=== PATIENT | female | born 1945 | race Caucasian/White ===

== ENCOUNTER 2020-03-08 23:56 | Inpatient (IN) | payer MEDICARE, OTHER, SELFPAY ==
[2020-03-08 23:58] VITALS: BP 204/97; PULSE 102; RESP 18; TEMP 36.6; O2SAT 98; BMI 25.1
[2020-03-09] VITALS (81 sets, daily range): BP systolic 94–207; BP diastolic 39–124; PULSE 52–93; RESP 14–33; TEMP 36.7–37.6; O2SAT 92–98
--- NOTE | 2020-03-09 00:17 | XRR_ITS ---
PROCEDURE INFORMATION: Exam: XR Chest, 1 View Exam date and time: 03/09/2020 2:40 AM Age: 74 years old Clinical indication: Chest pain. TECHNIQUE: Imaging protocol: XR of the chest Views: 1 view. COMPARISON: No relevant prior studies available. FINDINGS: Lungs: No lung consolidation or pulmonary edema. Pleural space: No pleural effusion or pneumothorax. Heart/Mediastinum: The cardiac silhouette is not enlarged. The mediastinal contours are normal. There are 3 radiopaque capsules or pills in the lower thoracic esophagus. Bones/joints: No acute osseous abnormality. XR/XR chest 1V portable [id number] IMPRESSION: No acute abnormality.
--- NOTE | 2020-03-09 00:17 | ECG_ITS ---
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 Measurements Intervals Commodore Rate: 62 P: 72 LA: 159 QRS: -3 QRSD: 102 T: -40 QT: 419 QTc: 426 Interpretive Statements SINUS RHYTHM WITH OCCASIONAL SUPRAVENTRICULAR PREMATURE COMPLEXES NONSPECIFIC T-WAVE ABNORMALITY Compared to ECG 03/09/2020 02:09:00 Sinus bradycardia no longer present Possible ischemia no longer present T-wave abnormality still present Electronically Signed On 03-09-2020 21:26:29 CDT by Ulices Staples M.D. [email or web address]-Human Patientsjefferson comprehensive health centerStyleCraze Beauty Care Pvt Ltdashtabula county medical center.[id number]
--- NOTE | 2020-03-09 00:26 | W.ED.CHESTPA ---
Documented by User: BETO Shore 03/12/20 07:02 HPI - Chest Pain General: Chief Complaint: Chest Pain Stated Complaint: cp Time Seen by Provider: 03/09/20 00:18 History of Present Illness: HPI narrative: Patient been vomiting 6 or 7 times a day developed chest pain later this evening. Now she said center of her chest and radiates down the arms. She has epigastric tenderness also feels nauseated said she has had chest pain since February on and . Was told she had GERD MD complaint: chest pain Onset (ago): hour(s) Timing of current episode: constant Prior episodes: Yes Onset: during rest Pain location: epigastric Pain radiation: right arm and left arm Severity: similar to previous episodes Quality: sharp Relieving factors: nothing Exacerbating factors: nothing Associated symptoms: Reports no associated symptoms, nausea and vomiting; Deny dyspnea or fever(s) Review of Systems Const: Denies: fever(s), chills or body aches Eyes: Denies: change in vision or blurry vision ENMT: Denies: throat pain or nasal congestion Card: Reports: chest pain; Denies: dyspnea on exertion Resp: Denies: dyspnea, productive cough or non-productive cough GI: Reports: nausea and vomiting Musc: Denies: extremity pain Skin/Breast: Denies: rash Neuro: Denies: headache(s) Psych: Denies: anxiety or depression Luis/Lymph: Denies: easy bruising PFS ED PFSH: Medical History GERD (gastroesophageal reflux disease) Hypertension Recurrent UTI Surgical History H/O: hysterectomy Family History Father CAD (coronary artery disease) Emphysema lung Mother CAD (coronary artery disease) Social History Smoking and tobacco status: never smoked History of recent travel: No Physical Exam Const: COMMON NORMALS: no acute distress, average body habitus and patient oriented x3 HENMT: COMMON NORMALS: normocephalic HEAD & SCALP: normal to inspection and normocephalic FACE & SINUS: normal facial exam Eye: COMMON NORMALS: conjunctivae normal GENERAL EYE: appearance normal, both eyes and all related structures CONJUNCTIVA: Yes conjunctivae normal Neck/C-Spine: COMMON NORMALS: no JVD Chest: COMMONS NORMALS: normal inspection of the chest Resp: COMMON NORMALS: normal respiratory effort and clear to auscultation bilaterally AUSCULTATION: clear to auscultation bilaterally Cardio: COMMON NORMALS: no JVD, regular rate and regular rhythm RATE: regular rate RHYTHM: regular rhythm GI: AUSCULTATION: Yes normoactive bowel sounds PALPATION: Yes Tenderness to palpation present (GI) (Epigastric) Extremity: COMMON NORMALS: normal to inspection and full ROM Neuro: COMMON NORMALS: patient oriented x3 Course Vital Signs: Vital signs: Vital Signs Temperature 98.6 F 03/11/20 12:43 Pulse Rate 78 03/11/20 12:43 Respiratory Rate 19 H 03/11/20 12:43 Blood Pressure 159/93 03/11/20 12:43 Pulse Oximetry 96 03/11/20 12:43 MDM - Chest Pain MDM Narrative: Medical decision making narrative: Not much relief with GI cocktail will try some morphine Lab Data: Labs: Lab Results 03/09/20 03/09/20 03/09/20 Range/Units 00:30 00:32 00:32 WBC 9.9 (4.0-10.0) 10^3/ uL RBC 4.94 (4.1-5.3) 10^6/u L Hgb 14.1 (11.5-15.3) g/dL Hct 43.6 (37.0-47.0) % MCV 88.3 (81-99) fL MCH 28.5 (28.0-34.0) pg MCHC 32.3 (30.0-36.0) g/dL RDW 12.3 (12.1-15.1) % Plt Count 138 (130-400) 10^3/c mm MPV 13.7 H (7.4-10.4) fL Neut % (Auto) 90.2 % Lymph % (Auto) 7.3 % [place] % (Auto) 2.2 % Eos % (Auto) 0.0 % Baso % (Auto) 0.1 % Neut # (Auto) 8.92 H (1.8-7.7) 10^3/u L Lymph # (Auto) 0.7 L (0.8-4.8) 10^3/u L [place] # (Auto) 0.2 (0.2-0.9) 10^3/u L Eos # (Auto) 0.0 (0.0-0.8) 10^3/u L Baso # (Auto) 0.0 (0.0-0.1) 10^3/u L Nucleated RBC % (a uto) 0 % Nucleated RBCs # 0.0 /100WBC PT 12.40 (12.1-14.9) SECO NDS INR 0.90 (0.8-1.2) D-Dimer 1.32 H (0-0.59) ug/mIFE U Sodium (136-145) mmol/L Potassium (3.5-5.1) mmol/L Chloride (98-107) mmol/L Carbon Dioxide (22-29) mmol/L Anion Gap (5-19) BUN (8-23) mg/dL Creatinine (0.5-0.9) mg/dL GFR Calculation Glucose (65-115) mg/dL Calculated Osmolal ity (285-295) mOsm/k g Calcium (8.5-10.5) mg/dL Phosphorus (2.5-4.5) mg/dL Magnesium (1.7-2.3) mg/dL Total Bilirubin (0.15-1.2) mg/dL AST (0-32) U/L ALT (0-33) U/L Alkaline Phosphata se (35-105) IU/L Troponin T Baselin e (0-10) ng/L Troponin T 120 Min [place] (0-10) ng/L Delta Troponin T (0-10) ABS# Troponin T Hi Sens 6Hr (0-10) ng/L Troponin T Hi Sens 6Hr Delta (0-12) ng/L NT-Pro-B Natriuret Pep (0-125) pg/mL Total Protein (6.6-8.7) g/dL Albumin (3.5-5.2) g/dL Globulin (1.3-4.6) g/dL Triglycerides (0-150) mg/dL Cholesterol (0-200) mg/dL LDL Cholesterol, C alc (50-129) mg/dL HDL Cholesterol (60-100) mg/dL LDL/HDL Ratio (0.00-3.22) RATI O Cholesterol/HDL Ra parker (0.0-4.40) mg/dL TSH (0.27-4.20) uIU/ mL Urine Color Yellow (Yellow) Urine Appearance Cloudy (CLEAR) Urine pH 5 (5-7) Ur Specific Gravit y 1.030 (1.005-1.030) Urine Protein 1+ H (Negative) Urine Glucose (UA) Trace H (Normal) Urine Ketones 2+ H (Negative) Urine Blood 3+ H (Negative) Urine Nitrate Negative (Negative) Urine Bilirubin Neg (Negative) Urine Urobilinogen Norm (Negative) mg/dL Ur Leukocyte Dai ase Negative (Negative) Urine RBC 0-4 H (0-2) /hpf Urine WBC 0-4 H (0-5) /hpf Ur Squamous Epith Cells 0-4 H (0-5) /hpf Amorphous Sediment Not Reportable Urine Bacteria 3+ H (NONE) /hpf 03/09/20 03/09/20 03/09/20 Range/Units 00:32 00:32 00:32 WBC (4.0-10.0) 10^3/ uL RBC (4.1-5.3) 10^6/u L Hgb (11.5-15.3) g/dL Hct (37.0-47.0) % MCV (81-99) fL MCH (28.0-34.0) pg MCHC (30.0-36.0) g/dL RDW (12.1-15.1) % Plt Count (130-400) 10^3/c mm MPV (7.4-10.4) fL Neut % (Auto) % Lymph % (Auto) % [place] % (Auto) % Eos % (Auto) % Baso % (Auto) % Neut # (Auto) (1.8-7.7) 10^3/u L Lymph # (Auto) (0.8-4.8) 10^3/u L [place] # (Auto) (0.2-0.9) 10^3/u L Eos # (Auto) (0.0-0.8) 10^3/u L Baso # (Auto) (0.0-0.1) 10^3/u L Nucleated RBC % (a uto) % Nucleated RBCs # /100WBC PT (12.1-14.9) SECO NDS INR (0.8-1.2) D-Dimer (0-0.59) ug/mIFE U Sodium 132 L (136-145) mmol/L Potassium 3.4 L (3.5-5.1) mmol/L Chloride 95 L (98-107) mmol/L Carbon Dioxide 23 (22-29) mmol/L Anion Gap 17.4 (5-19) BUN 17 (8-23) mg/dL Creatinine 1.0 H (0.5-0.9) mg/dL GFR Calculation Not Reportable Glucose 158 H (65-115) mg/dL Calculated Osmolal ity 279 L (285-295) mOsm/k g Calcium 10.9 H (8.5-10.5) mg/dL Phosphorus (2.5-4.5) mg/dL Magnesium 2.1 (1.7-2.3) mg/dL Total Bilirubin 0.4 (0.15-1.2) mg/dL AST 47 H (0-32) U/L ALT 20 (0-33) U/L Alkaline Phosphata se 134 H (35-105) IU/L Troponin T Baselin e 233 H* (0-10) ng/L Troponin T 120 Min [place] (0-10) ng/L Delta Troponin T (0-10) ABS# Troponin T Hi Sens 6Hr (0-10) ng/L Troponin T Hi Sens 6Hr Delta (0-12) ng/L NT-Pro-B Natriuret Pep 1692 H (0-125) pg/mL Total Protein 7.7 (6.6-8.7) g/dL Albumin 4.8 (3.5-5.2) g/dL Globulin 2.9 (1.3-4.6) g/dL Triglycerides (0-150) mg/dL Cholesterol (0-200) mg/dL LDL Cholesterol, C alc (50-129) mg/dL HDL Cholesterol (60-100) mg/dL LDL/HDL Ratio (0.00-3.22) RATI O Cholesterol/HDL Ra parker (0.0-4.40) mg/dL TSH (0.27-4.20) uIU/ mL Urine Color (Yellow) Urine Appearance (CLEAR) Urine pH (5-7) Ur Specific Gravit y (1.005-1.030) Urine Protein (Negative) Urine Glucose (UA) (Normal) Urine Ketones (Negative) Urine Blood (Negative) Urine Nitrate (Negative) Urine Bilirubin (Negative) Urine Urobilinogen (Negative) mg/dL Ur Leukocyte Dai ase (Negative) Urine RBC (0-2) /hpf Urine WBC (0-5) /hpf Ur Squamous Epith Cells (0-5) /hpf Amorphous Sediment Urine Bacteria (NONE) /hpf 03/09/20 03/09/20 03/09/20 Range/Units 02:40 06:20 06:20 WBC (4.0-10.0) 10^3/ uL RBC (4.1-5.3) 10^6/u L Hgb (11.5-15.3) g/dL Hct (37.0-47.0) % MCV (81-99) fL MCH (28.0-34.0) pg MCHC (30.0-36.0) g/dL RDW (12.1-15.1) % Plt Count (130-400) 10^3/c mm MPV (7.4-10.4) fL Neut % (Auto) % Lymph % (Auto) % [place] % (Auto) % Eos % (Auto) % Baso % (Auto) % Neut # (Auto) (1.8-7.7) 10^3/u L Lymph # (Auto) (0.8-4.8) 10^3/u L [place] # (Auto) (0.2-0.9) 10^3/u L Eos # (Auto) (0.0-0.8) 10^3/u L Baso # (Auto) (0.0-0.1) 10^3/u L Nucleated RBC % (a uto) % Nucleated RBCs # /100WBC PT (12.1-14.9) SECO NDS INR (0.8-1.2) D-Dimer (0-0.59) ug/mIFE U Sodium (136-145) mmol/L Potassium (3.5-5.1) mmol/L Chloride (98-107) mmol/L Carbon Dioxide (22-29) mmol/L Anion Gap (5-19) BUN (8-23) mg/dL Creatinine (0.5-0.9) mg/dL GFR Calculation Glucose (65-115) mg/dL Calculated Osmolal ity (285-295) mOsm/k g Calcium (8.5-10.5) mg/dL Phosphorus (2.5-4.5) mg/dL Magnesium (1.7-2.3) mg/dL Total Bilirubin (0.15-1.2) mg/dL AST (0-32) U/L ALT (0-33) U/L Alkaline Phosphata se (35-105) IU/L Troponin T Baselin e (0-10) ng/L Troponin T 120 Min [place] 278.4 H (0-10) ng/L Delta Troponin T 45.4 H* (0-10) ABS# Troponin T Hi Sens 6Hr 462.4 H (0-10) ng/L Troponin T Hi Sens 6Hr Delta 229.4 H* (0-12) ng/L NT-Pro-B Natriuret Pep (0-125) pg/mL Total Protein (6.6-8.7) g/dL Albumin (3.5-5.2) g/dL Globulin (1.3-4.6) g/dL Triglycerides 42 (0-150) mg/dL Cholesterol 167 (0-200) mg/dL LDL Cholesterol, C alc 95 (50-129) mg/dL HDL Cholesterol 64 (60-100) mg/dL LDL/HDL Ratio 1.48 (0.00-3.22) RATI O Cholesterol/HDL Ra parker 2.61 (0.0-4.40) mg/dL TSH 3.19 (0.27-4.20) uIU/ mL Urine Color (Yellow) Urine Appearance (CLEAR) Urine pH (5-7) Ur Specific Gravit y (1.005-1.030) Urine Protein (Negative) Urine Glucose (UA) (Normal) Urine Ketones (Negative) Urine Blood (Negative) Urine Nitrate (Negative) Urine Bilirubin (Negative) Urine Urobilinogen (Negative) mg/dL Ur Leukocyte Dai ase (Negative) Urine RBC (0-2) /hpf Urine WBC (0-5) /hpf Ur Squamous Epith Cells (0-5) /hpf Amorphous Sediment Urine Bacteria (NONE) /hpf 03/10/20 03/10/20 Range/Units 03:30 03:30 WBC 7.0 (4.0-10.0) 10^3/ uL RBC 3.49 L (4.1-5.3) 10^6/u L Hgb 10.2 L (11.5-15.3) g/dL Hct 31.9 L (37.0-47.0) % MCV 91.4 (81-99) fL MCH 29.2 (28.0-34.0) pg MCHC 32.0 (30.0-36.0) g/dL RDW 13.0 (12.1-15.1) % Plt Count 92 L (130-400) 10^3/c mm MPV 13.5 H (7.4-10.4) fL Neut % (Auto) 75.0 % Lymph % (Auto) 16.6 % [place] % (Auto) 7.6 % Eos % (Auto) 0.1 % Baso % (Auto) 0.3 % Neut # (Auto) 5.22 (1.8-7.7) 10^3/u L Lymph # (Auto) 1.2 (0.8-4.8) 10^3/u L [place] # (Auto) 0.5 (0.2-0.9) 10^3/u L Eos # (Auto) 0.0 (0.0-0.8) 10^3/u L Baso # (Auto) 0.0 (0.0-0.1) 10^3/u L Nucleated RBC % (a uto) 0 % Nucleated RBCs # 0.0 /100WBC PT (12.1-14.9) SECO NDS INR (0.8-1.2) D-Dimer (0-0.59) ug/mIFE U Sodium 137 (136-145) mmol/L Potassium 3.8 (3.5-5.1) mmol/L Chloride 107 (98-107) mmol/L Carbon Dioxide 22 (22-29) mmol/L Anion Gap 11.8 (5-19) BUN 15 (8-23) mg/dL Creatinine 0.9 (0.5-0.9) mg/dL GFR Calculation Not Reportable Glucose 110 (65-115) mg/dL Calculated Osmolal ity 285 (285-295) mOsm/k g Calcium 9.9 (8.5-10.5) mg/dL Phosphorus 2.3 L (2.5-4.5) mg/dL Magnesium 2.1 (1.7-2.3) mg/dL Total Bilirubin 0.4 (0.15-1.2) mg/dL AST 69 H (0-32) U/L ALT 16 (0-33) U/L Alkaline Phosphata se 84 (35-105) IU/L Troponin T Baselin e (0-10) ng/L Troponin T 120 Min [place] (0-10) ng/L Delta Troponin T (0-10) ABS# Troponin T Hi Sens 6Hr (0-10) ng/L Troponin T Hi Sens 6Hr Delta (0-12) ng/L NT-Pro-B Natriuret Pep (0-125) pg/mL Total Protein 5.2 L (6.6-8.7) g/dL Albumin 3.0 L (3.5-5.2) g/dL Globulin 2.2 (1.3-4.6) g/dL Triglycerides (0-150) mg/dL Cholesterol (0-200) mg/dL LDL Cholesterol, C alc (50-129) mg/dL HDL Cholesterol (60-100) mg/dL LDL/HDL Ratio (0.00-3.22) RATI O Cholesterol/HDL Ra parker (0.0-4.40) mg/dL TSH (0.27-4.20) uIU/ mL Urine Color (Yellow) Urine Appearance (CLEAR) Urine pH (5-7) Ur Specific Gravit y (1.005-1.030) Urine Protein (Negative) Urine Glucose (UA) (Normal) Urine Ketones (Negative) Urine Blood (Negative) Urine Nitrate (Negative) Urine Bilirubin (Negative) Urine Urobilinogen (Negative) mg/dL Ur Leukocyte Dai ase (Negative) Urine RBC (0-2) /hpf Urine WBC (0-5) /hpf Ur Squamous Epith Cells (0-5) /hpf Amorphous Sediment Urine Bacteria (NONE) /hpf Discharge Plan Discharge Patient Disposition: Admitted As Inpatient Admit Provider: Freddie Oliveira Clinical Impression: NSTEMI (non-ST elevated myocardial infarction) Condition: Stable Referrals: Jaun Rodriguez M.D [Physician] - 6 Weeks (You will have an appointment with Dr. Dao on April 21 at 3:30pm. This is a Cardiology follow up at [facility] if you have any questions or concerns please call the office. ) Yohana Nielsen FNP [Nurse Practitioner] - 7-10 days (You have a hospital follow up appointment with Yohana Nielsen on Saturday, March 18 at 10:00am. If you have any questions or conerns please call the office. ) Discharge Diet: Cardiac and Low Salt Patient Instructions: Metoprolol (By mouth), Lisinopril (By mouth), Aspirin (By mouth), Atorvastatin (By mouth), Carvedilol (By mouth), Clopidogrel (By mouth), Hypertension, Myocardial Infarction (DC), Chest Pain (DC), Urinary Tract Infection in Women (DC), Chest Pain Stoplight, Post Angiogram Home Care Instructions, Post Heart Attack Stoplight Discharge Date/Time: 03/09/20 11:43 Sign Out Sign Out Data: Patient Sign Out occurred on 03/09/20 at 01:31. Patient's care was discussed, and care was transferred from to Rain Ledesma. Coding Level of Care Code ED Voltmeter Operator for Chg Fwd Exam Comprehensive Documented by User: Rain Ledesma 03/09/20 06:00 HPI - Chest Pain General: Chief Complaint: Chest Pain Stated Complaint: cp Time Seen by Provider: 03/09/20 00:18 PFSH ED PFSH: Medical History GERD (gastroesophageal reflux disease) Hypertension Recurrent UTI Surgical History H/O: hysterectomy Family History Father CAD (coronary artery disease) Emphysema lung Mother CAD (coronary artery disease) Social History Smoking and tobacco status: never smoked History of recent travel: No Course Vital Signs: Vital signs: Vital Signs Temperature 98.6 F 03/11/20 12:43 Pulse Rate 78 03/11/20 12:43 Respiratory Rate 19 H 03/11/20 12:43 Blood Pressure 159/93 03/11/20 12:43 Pulse Oximetry 96 03/11/20 12:43 MDM - Chest Pain MDM Narrative: Medical decision making narrative: Patient is chest pain-free with a combination of nitroglycerin drip, aspirin and morphine. The case was endorsed to Dr. Yeboah and Michael, they will admit and consult respectively. All EKGs reviewed here did not show signs of STEMI but did show inferior T wave inversions but no ST segment elevation. These were reviewed by Dr. Crisostomo. Lab Data: Attestation: I reviewed the patient's lab results. Labs: Lab Results 03/09/20 03/09/20 03/09/20 Range/Units 00:30 00:32 00:32 WBC 9.9 (4.0-10.0) 10^3/ uL RBC 4.94 (4.1-5.3) 10^6/u L Hgb 14.1 (11.5-15.3) g/dL Hct 43.6 (37.0-47.0) % MCV 88.3 (81-99) fL MCH 28.5 (28.0-34.0) pg MCHC 32.3 (30.0-36.0) g/dL RDW 12.3 (12.1-15.1) % Plt Count 138 (130-400) 10^3/c mm MPV 13.7 H (7.4-10.4) fL Neut % (Auto) 90.2 % Lymph % (Auto) 7.3 % [place] % (Auto) 2.2 % Eos % (Auto) 0.0 % Baso % (Auto) 0.1 % Neut # (Auto) 8.92 H (1.8-7.7) 10^3/u L Lymph # (Auto) 0.7 L (0.8-4.8) 10^3/u L [place] # (Auto) 0.2 (0.2-0.9) 10^3/u L Eos # (Auto) 0.0 (0.0-0.8) 10^3/u L Baso # (Auto) 0.0 (0.0-0.1) 10^3/u L Nucleated RBC % (a uto) 0 % Nucleated RBCs # 0.0 /100WBC PT 12.40 (12.1-14.9) SECO NDS INR 0.90 (0.8-1.2) D-Dimer 1.32 H (0-0.59) ug/mIFE U Sodium (136-145) mmol/L Potassium (3.5-5.1) mmol/L Chloride (98-107) mmol/L Carbon Dioxide (22-29) mmol/L Anion Gap (5-19) BUN (8-23) mg/dL Creatinine (0.5-0.9) mg/dL GFR Calculation Glucose (65-115) mg/dL Calculated Osmolal ity (285-295) mOsm/k g Calcium (8.5-10.5) mg/dL Phosphorus (2.5-4.5) mg/dL Magnesium (1.7-2.3) mg/dL Total Bilirubin (0.15-1.2) mg/dL AST (0-32) U/L ALT (0-33) U/L Alkaline Phosphata se (35-105) IU/L Troponin T Baselin e (0-10) ng/L Troponin T 120 Min [place] (0-10) ng/L Delta Troponin T (0-10) ABS# Troponin T Hi Sens 6Hr (0-10) ng/L Troponin T Hi Sens 6Hr Delta (0-12) ng/L NT-Pro-B Natriuret Pep (0-125) pg/mL Total Protein (6.6-8.7) g/dL Albumin (3.5-5.2) g/dL Globulin (1.3-4.6) g/dL Triglycerides (0-150) mg/dL Cholesterol (0-200) mg/dL LDL Cholesterol, C alc (50-129) mg/dL HDL Cholesterol (60-100) mg/dL LDL/HDL Ratio (0.00-3.22) RATI O Cholesterol/HDL Ra parker (0.0-4.40) mg/dL TSH (0.27-4.20) uIU/ mL Urine Color Yellow (Yellow) Urine Appearance Cloudy (CLEAR) Urine pH 5 (5-7) Ur Specific Gravit y 1.030 (1.005-1.030) Urine Protein 1+ H (Negative) Urine Glucose (UA) Trace H (Normal) Urine Ketones 2+ H (Negative) Urine Blood 3+ H (Negative) Urine Nitrate Negative (Negative) Urine Bilirubin Neg (Negative) Urine Urobilinogen Norm (Negative) mg/dL Ur Leukocyte Dai ase Negative (Negative) Urine RBC 0-4 H (0-2) /hpf Urine WBC 0-4 H (0-5) /hpf Ur Squamous Epith Cells 0-4 H (0-5) /hpf Amorphous Sediment Not Reportable Urine Bacteria 3+ H (NONE) /hpf 03/09/20 03/09/20 03/09/20 Range/Units 00:32 00:32 00:32 WBC (4.0-10.0) 10^3/ uL RBC (4.1-5.3) 10^6/u L Hgb (11.5-15.3) g/dL Hct (37.0-47.0) % MCV (81-99) fL MCH (28.0-34.0) pg MCHC (30.0-36.0) g/dL RDW (12.1-15.1) % Plt Count (130-400) 10^3/c mm MPV (7.4-10.4) fL Neut % (Auto) % Lymph % (Auto) % [place] % (Auto) % Eos % (Auto) % Baso % (Auto) % Neut # (Auto) (1.8-7.7) 10^3/u L Lymph # (Auto) (0.8-4.8) 10^3/u L [place] # (Auto) (0.2-0.9) 10^3/u L Eos # (Auto) (0.0-0.8) 10^3/u L Baso # (Auto) (0.0-0.1) 10^3/u L Nucleated RBC % (a uto) % Nucleated RBCs # /100WBC PT (12.1-14.9) SECO NDS INR (0.8-1.2) D-Dimer (0-0.59) ug/mIFE U Sodium 132 L (136-145) mmol/L Potassium 3.4 L (3.5-5.1) mmol/L Chloride 95 L (98-107) mmol/L Carbon Dioxide 23 (22-29) mmol/L Anion Gap 17.4 (5-19) BUN 17 (8-23) mg/dL Creatinine 1.0 H (0.5-0.9) mg/dL GFR Calculation Not Reportable Glucose 158 H (65-115) mg/dL Calculated Osmolal ity 279 L (285-295) mOsm/k g Calcium 10.9 H (8.5-10.5) mg/dL Phosphorus (2.5-4.5) mg/dL Magnesium 2.1 (1.7-2.3) mg/dL Total Bilirubin 0.4 (0.15-1.2) mg/dL AST 47 H (0-32) U/L ALT 20 (0-33) U/L Alkaline Phosphata se 134 H (35-105) IU/L Troponin T Baselin e 233 H* (0-10) ng/L Troponin T 120 Min [place] (0-10) ng/L Delta Troponin T (0-10) ABS# Troponin T Hi Sens 6Hr (0-10) ng/L Troponin T Hi Sens 6Hr Delta (0-12) ng/L NT-Pro-B Natriuret Pep 1692 H (0-125) pg/mL Total Protein 7.7 (6.6-8.7) g/dL Albumin 4.8 (3.5-5.2) g/dL Globulin 2.9 (1.3-4.6) g/dL Triglycerides (0-150) mg/dL Cholesterol (0-200) mg/dL LDL Cholesterol, C alc (50-129) mg/dL HDL Cholesterol (60-100) mg/dL LDL/HDL Ratio (0.00-3.22) RATI O Cholesterol/HDL Ra parker (0.0-4.40) mg/dL TSH (0.27-4.20) uIU/ mL Urine Color (Yellow) Urine Appearance (CLEAR) Urine pH (5-7) Ur Specific Gravit y (1.005-1.030) Urine Protein (Negative) Urine Glucose (UA) (Normal) Urine Ketones (Negative) Urine Blood (Negative) Urine Nitrate (Negative) Urine Bilirubin (Negative) Urine Urobilinogen (Negative) mg/dL Ur Leukocyte Dai ase (Negative) Urine RBC (0-2) /hpf Urine WBC (0-5) /hpf Ur Squamous Epith Cells (0-5) /hpf Amorphous Sediment Urine Bacteria (NONE) /hpf 03/09/20 03/09/20 03/09/20 Range/Units 02:40 06:20 06:20 WBC (4.0-10.0) 10^3/ uL RBC (4.1-5.3) 10^6/u L Hgb (11.5-15.3) g/dL Hct (37.0-47.0) % MCV (81-99) fL MCH (28.0-34.0) pg MCHC (30.0-36.0) g/dL RDW (12.1-15.1) % Plt Count (130-400) 10^3/c mm MPV (7.4-10.4) fL Neut % (Auto) % Lymph % (Auto) % [place] % (Auto) % Eos % (Auto) % Baso % (Auto) % Neut # (Auto) (1.8-7.7) 10^3/u L Lymph # (Auto) (0.8-4.8) 10^3/u L [place] # (Auto) (0.2-0.9) 10^3/u L Eos # (Auto) (0.0-0.8) 10^3/u L Baso # (Auto) (0.0-0.1) 10^3/u L Nucleated RBC % (a uto) % Nucleated RBCs # /100WBC PT (12.1-14.9) SECO NDS INR (0.8-1.2) D-Dimer (0-0.59) ug/mIFE U Sodium (136-145) mmol/L Potassium (3.5-5.1) mmol/L Chloride (98-107) mmol/L Carbon Dioxide (22-29) mmol/L Anion Gap (5-19) BUN (8-23) mg/dL Creatinine (0.5-0.9) mg/dL GFR Calculation Glucose (65-115) mg/dL Calculated Osmolal ity (285-295) mOsm/k g Calcium (8.5-10.5) mg/dL Phosphorus (2.5-4.5) mg/dL Magnesium (1.7-2.3) mg/dL Total Bilirubin (0.15-1.2) mg/dL AST (0-32) U/L ALT (0-33) U/L Alkaline Phosphata se (35-105) IU/L Troponin T Baselin e (0-10) ng/L Troponin T 120 Min [place] 278.4 H (0-10) ng/L Delta Troponin T 45.4 H* (0-10) ABS# Troponin T Hi Sens 6Hr 462.4 H (0-10) ng/L Troponin T Hi Sens 6Hr Delta 229.4 H* (0-12) ng/L NT-Pro-B Natriuret Pep (0-125) pg/mL Total Protein (6.6-8.7) g/dL Albumin (3.5-5.2) g/dL Globulin (1.3-4.6) g/dL Triglycerides 42 (0-150) mg/dL Cholesterol 167 (0-200) mg/dL LDL Cholesterol, C alc 95 (50-129) mg/dL HDL Cholesterol 64 (60-100) mg/dL LDL/HDL Ratio 1.48 (0.00-3.22) RATI O Cholesterol/HDL Ra parker 2.61 (0.0-4.40) mg/dL TSH 3.19 (0.27-4.20) uIU/ mL Urine Color (Yellow) Urine Appearance (CLEAR) Urine pH (5-7) Ur Specific Gravit y (1.005-1.030) Urine Protein (Negative) Urine Glucose (UA) (Normal) Urine Ketones (Negative) Urine Blood (Negative) Urine Nitrate (Negative) Urine Bilirubin (Negative) Urine Urobilinogen (Negative) mg/dL Ur Leukocyte Dai ase (Negative) Urine RBC (0-2) /hpf Urine WBC (0-5) /hpf Ur Squamous Epith Cells (0-5) /hpf Amorphous Sediment Urine Bacteria (NONE) /hpf 03/10/20 03/10/20 Range/Units 03:30 03:30 WBC 7.0 (4.0-10.0) 10^3/ uL RBC 3.49 L (4.1-5.3) 10^6/u L Hgb 10.2 L (11.5-15.3) g/dL Hct 31.9 L (37.0-47.0) % MCV 91.4 (81-99) fL MCH 29.2 (28.0-34.0) pg MCHC 32.0 (30.0-36.0) g/dL RDW 13.0 (12.1-15.1) % Plt Count 92 L (130-400) 10^3/c mm MPV 13.5 H (7.4-10.4) fL Neut % (Auto) 75.0 % Lymph % (Auto) 16.6 % [place] % (Auto) 7.6 % Eos % (Auto) 0.1 % Baso % (Auto) 0.3 % Neut # (Auto) 5.22 (1.8-7.7) 10^3/u L Lymph # (Auto) 1.2 (0.8-4.8) 10^3/u L [place] # (Auto) 0.5 (0.2-0.9) 10^3/u L Eos # (Auto) 0.0 (0.0-0.8) 10^3/u L Baso # (Auto) 0.0 (0.0-0.1) 10^3/u L Nucleated RBC % (a uto) 0 % Nucleated RBCs # 0.0 /100WBC PT (12.1-14.9) SECO NDS INR (0.8-1.2) D-Dimer (0-0.59) ug/mIFE U Sodium 137 (136-145) mmol/L Potassium 3.8 (3.5-5.1) mmol/L Chloride 107 (98-107) mmol/L Carbon Dioxide 22 (22-29) mmol/L Anion Gap 11.8 (5-19) BUN 15 (8-23) mg/dL Creatinine 0.9 (0.5-0.9) mg/dL GFR Calculation Not Reportable Glucose 110 (65-115) mg/dL Calculated Osmolal ity 285 (285-295) mOsm/k g Calcium 9.9 (8.5-10.5) mg/dL Phosphorus 2.3 L (2.5-4.5) mg/dL Magnesium 2.1 (1.7-2.3) mg/dL Total Bilirubin 0.4 (0.15-1.2) mg/dL AST 69 H (0-32) U/L ALT 16 (0-33) U/L Alkaline Phosphata se 84 (35-105) IU/L Troponin T Baselin e (0-10) ng/L Troponin T 120 Min [place] (0-10) ng/L Delta Troponin T (0-10) ABS# Troponin T Hi Sens 6Hr (0-10) ng/L Troponin T Hi Sens 6Hr Delta (0-12) ng/L NT-Pro-B Natriuret Pep (0-125) pg/mL Total Protein 5.2 L (6.6-8.7) g/dL Albumin 3.0 L (3.5-5.2) g/dL Globulin 2.2 (1.3-4.6) g/dL Triglycerides (0-150) mg/dL Cholesterol (0-200) mg/dL LDL Cholesterol, C alc (50-129) mg/dL HDL Cholesterol (60-100) mg/dL LDL/HDL Ratio (0.00-3.22) RATI O Cholesterol/HDL Ra parker (0.0-4.40) mg/dL TSH (0.27-4.20) uIU/ mL Urine Color (Yellow) Urine Appearance (CLEAR) Urine pH (5-7) Ur Specific Gravit y (1.005-1.030) Urine Protein (Negative) Urine Glucose (UA) (Normal) Urine Ketones (Negative) Urine Blood (Negative) Urine Nitrate (Negative) Urine Bilirubin (Negative) Urine Urobilinogen (Negative) mg/dL Ur Leukocyte Dai ase (Negative) Urine RBC (0-2) /hpf Urine WBC (0-5) /hpf Ur Squamous Epith Cells (0-5) /hpf Amorphous Sediment Urine Bacteria (NONE) /hpf Imaging Data^: CXR: Attestation: I personally reviewed and interpreted this imaging study as follows: My impression: No acute cardiopulmonary findings. CT Chest: Radiologist's impression: [address] [place] [address] CT Scan Report Signed Patient: Leonor Morataya Unit #: [id number] : 1945 Age/Sex: 74 / F ADM Date: 03/08/20 Loc: ER Room/Bed: Attending Dr: Ordering Provider/Ordering MD: Mihir Malhotra Sr, [facility] Date of Service: 03/09/20 Procedure(s): CT angio chest PE protcl [id number] Accession Number(s): [id number] Report Number: [id number] PROCEDURE INFORMATION: Exam: CT Angiography Chest With Contrast Exam date and time: 03/09/2020 1:41 AM Age: 74 years old Clinical indication: Chest pain; Additional info: Cp TECHNIQUE: Imaging protocol: Computed tomographic angiography of the chest with intravenous contrast. 3D rendering (Not supervised by radiologist): MIP and/or 3D reconstructed images were created by the technologist. Radiation optimization: All CT scans at this facility use at least one of these dose optimization techniques: automated exposure control; mA and/or kV adjustment per patient size (includes targeted exams where dose is matched to clinical indication); or iterative reconstruction. Contrast material: VISI; Contrast volume: 80 ml; Contrast route: INTRAVENOUS (IV); COMPARISON: No relevant prior studies available. RADIATION DOSE METRICS: Total DLP (mGy-cm): 549.84 FINDINGS: Pulmonary arteries: Normal. No pulmonary emboli. Aorta: Unremarkable. No aortic aneurysm. No aortic dissection. Lungs: Unremarkable. No consolidation. No masses. Pleural space: Unremarkable. No pneumothorax. No pleural effusion. Heart: Unremarkable. No cardiomegaly. No pericardial effusion. Mediastinal space: Three tablets/capsules are seen in the fundus of the stomach and 1 is present in the lower esophagus. Lymph nodes: Unremarkable. No enlarged lymph nodes. Adrenals: Heterogenous appearance of the adrenals is noted. A punctate cyst is seen in the posterosuperior right lobe of the liver. Bones/joints: Degenerative changes are present. No acute fracture. Soft tissues: Unremarkable. CT/CT angio chest PE protcl [id number] IMPRESSION: 1. No acute findings. Specifically negative for pulmonary embolism. Negative for aortic aneurysm or dissection. 2. A capsule/tablet is seen in the lower esophagus and 3 are present in the stomach fundus. 3. A tiny cyst is seen in the right lobe of the liver. Heterogenous appearance of the adrenals is seen. Radiation Dose CTDIVOL = (mGy): DLP = 549.84 (mGy-cm) Dictated By: Rebecca Najera Signed By: Rebecca Najera Signed Date/Time: 03/09/20404 DD/ 3 EKG Data^: EKG 1: Attestation: I personally reviewed and interpreted this EKG as follows: EKG interpretation date: 03/08/20 EKG interpretation time: 23:59 Interpretation: Normal sinus rhythm at 64 beats a minute, T wave inversions 2, 3, aVF. No old for comparison EKG 2: Attestation: I personally reviewed and interpreted this EKG as follows: EKG interpretation date: 03/09/20 EKG interpretation time: 00:38 Interpretation: Normal sinus rhythm at 66 beats a minute, T wave inversions 2, 3, aVF. Unchanged from previous EKG 3: Attestation: I personally reviewed and interpreted this EKG as follows: EKG interpretation date: 03/09/20 EKG interpretation time: 02:09 Interpretation: Normal sinus rhythm at 58 beats a minute, T wave inversions in 2, 3, aVF. No acute changes. EKG 4: Attestation: I personally reviewed and interpreted this EKG as follows: EKG interpretation date: 03/09/20 EKG interpretation time: 03:57 Interpretation: Normal sinus rhythm at 60 beats a minute, T wave version 2, 3, aVF. Discharge Plan Discharge Patient Disposition: Admitted As Inpatient Admit Provider: Freddie Oliveira Clinical Impression: NSTEMI (non-ST elevated myocardial infarction) Condition: Stable Referrals: Jaun Rodriguez M.D [Physician] - 6 Weeks (You will have an appointment with Dr. Dao on April 21 at 3:30pm. This is a Cardiology follow up at [facility] if you have any questions or concerns please call the office. ) Yohana Nielsen FNP [Nurse Practitioner] - 7-10 days (You have a hospital follow up appointment with Yohana Nielsen on March 18 at 10:00am. If you have any questions or conerns please call the office. ) Discharge Diet: Cardiac and Low Salt Patient Instructions: Metoprolol (By mouth), Lisinopril (By mouth), Aspirin (By mouth), Atorvastatin (By mouth), Carvedilol (By mouth), Clopidogrel (By mouth), Hypertension, Myocardial Infarction (DC), Chest Pain (DC), Urinary Tract Infection in Women (DC), Chest Pain Stoplight, Post Angiogram Home Care Instructions, Post Heart Attack Stoplight Discharge Date/Time: 03/09/20 11:43 Sign Out Sign Out Data: Patient Sign Out occurred on 03/09/20 at 01:31. Patient's care was discussed, and care was transferred from to Rain Ledesma. Coding Level of Care Code ED Voltmeter Operator for Chg Fwd Exam Comprehensive
[2020-03-09 00:46] LABS: Basophils % 0.1 %; Hematocrit 43.6 % (37.0-47.0); Hemoglobin 14.1 g/dL (11.5-15.3); Lymphocytes # 0.7 10^3/uL (0.8-4.8); Lymphocytes % 7.3 %; Mean Corpuscular HGB Conc 32.3 g/dL (30.0-36.0); Mean Corpuscular Hemoglobin 28.5 pg (28.0-34.0); Mean Corpuscular Volume 88.3 fL (81-99); Mean Platelet Volume 13.7 fL (7.4-10.4); Monocytes # 0.2 10^3/uL (0.2-0.9); Monocytes % 2.2 %; Neutrophils # 8.92 10^3/uL (1.8-7.7); Neutrophils % 90.2 %; Nucleated Red Blood Cells % 0 %; Platelet Count 138 10^3/cmm (130-400); Red Blood Count 4.94 10^6/uL (4.1-5.3); Red Cell Distribution Width 12.3 % (12.1-15.1); White Blood Count 9.9 10^3/uL (4.0-10.0)
[2020-03-09] MEDS: aspirin 81 mg Chew Tablet PO (00:49)
[2020-03-09] MEDS: lidocaine 2% viscous 15 ML, aluminum-mag hydrox-simethicon 30 ML, sucralfate oral liq 1 GM PO (00:49)
[2020-03-09] MEDS: ondansetron 2 mg/ML SDV 2 mL 4 MG IVP ×4 (00:50→15:40)
[2020-03-09 00:59] LABS: D Dimer 1.32 ug/mIFEU (0-0.59)
--- NOTE | 2020-03-09 01:05 | CTR_ITS ---
PROCEDURE INFORMATION: Exam: CT Angiography Chest With Contrast Exam date and time: 03/09/2020 1:41 AM Age: 74 years old Clinical indication: Chest pain; Additional info: Cp TECHNIQUE: Imaging protocol: Computed tomographic angiography of the chest with intravenous contrast. 3D rendering (Not supervised by radiologist): MIP and/or 3D reconstructed images were created by the technologist. Radiation optimization: All CT scans at this facility use at least one of these dose optimization techniques: automated exposure control; mA and/or kV adjustment per patient size (includes targeted exams where dose is matched to clinical indication); or iterative reconstruction. Contrast material: VISI; Contrast volume: 80 ml; Contrast route: INTRAVENOUS (IV); COMPARISON: No relevant prior studies available. RADIATION DOSE METRICS: Total DLP (mGy-cm): 549.84 FINDINGS: Pulmonary arteries: Normal. No pulmonary emboli. Aorta: Unremarkable. No aortic aneurysm. No aortic dissection. Lungs: Unremarkable. No consolidation. No masses. Pleural space: Unremarkable. No pneumothorax. No pleural effusion. Heart: Unremarkable. No cardiomegaly. No pericardial effusion. Mediastinal space: Three tablets/capsules are seen in the fundus of the stomach and 1 is present in the lower esophagus. Lymph nodes: Unremarkable. No enlarged lymph nodes. Adrenals: Heterogenous appearance of the adrenals is noted. A punctate cyst is seen in the posterosuperior right lobe of the liver. Bones/joints: Degenerative changes are present. No acute fracture. Soft tissues: Unremarkable. CT/CT angio chest PE protcl [id number] IMPRESSION: 1. No acute findings. Specifically negative for pulmonary embolism. Negative for aortic aneurysm or dissection. 2. A capsule/tablet is seen in the lower esophagus and 3 are present in the stomach fundus. 3. A tiny cyst is seen in the right lobe of the liver. Heterogenous appearance of the adrenals is seen. Radiation Dose CTDIVOL = (mGy): DLP = 549.84 (mGy-cm)
[2020-03-09 01:07] LABS: Slide Review Slide Review Perform
[2020-03-09 01:17] LABS: Alanine Aminotransferase 20 U/L (0-33); Albumin Level 4.8 g/dL (3.5-5.2); Alkaline Phosphatase 134 IU/L (35-105); Anion Gap 17.4 (5-19); Aspartate Amino Transferase 47 U/L (0-32); Blood Urea Nitrogen 17 mg/dL (8-23); Calcium 10.9 mg/dL (8.5-10.5); Carbon Dioxide 23 mmol/L (22-29); Chloride 95 mmol/L (98-107); Globulin 2.9 g/dL (1.3-4.6); Glucose 158 mg/dL (65-115); NT Pro B Type Natriuretic Pept 1692 pg/mL (0-125); Osmolality Calculated 279 mOsm/kg (285-295); Potassium 3.4 mmol/L (3.5-5.1); Sodium 132 mmol/L (136-145); Total Bilirubin 0.4 mg/dL (0.15-1.2); Total Protein 7.7 g/dL (6.6-8.7)
[2020-03-09 01:20] LABS: Troponin(5th) Baseline 233 ng/L (0-10)
[2020-03-09 01:24] LABS: Protein Urine 1+ (Negative); Urine Appearance Cloudy (CLEAR); Urine Color Yellow (Yellow); pH Urine 5 (5-7)
[2020-03-09 01:25] LABS: Add Urine Culture? Yes; Add Urine Microscopic? YES; Bacteria Urine 3+ /hpf; Bilirubin Urine Neg (Negative); Blood Urine 3+ (Negative); Glucose Urine UA Trace (Normal); Ketones Urine 2+ (Negative); Leukocyte Esterase Urine Negative (Negative); Nitrate Urine Negative (Negative); RBC Urine 0-4 /hpf (0-2); Squamous Epithelial Cell Urine 0-4 /hpf (0-5); Urobilinogen Urine Norm (Negative); WBC Urine 0-4 /hpf (0-5)
[2020-03-09] MEDS: morphine 4 mg/mL SDV 1 mL IVP (01:28)
[2020-03-09] MEDS: potassium chloride ER 10 mEq Tablet 40 MEQ PO (01:37)
[2020-03-09] MEDS: nitroglycerin 0.4 mg sublingual Tablet SUBLINGUAL (01:40)
[2020-03-09] MEDS: nitroglycerin 1 gm/inch oint Pkt 1 INCH TOPICAL (01:54)
[2020-03-09 02:00] LABS: Magnesium 2.1 mg/dL (1.7-2.3)
[2020-03-09] MEDS: morphine 4 mg/mL SDV 1 mL 2 MG IVP (02:14)
--- NOTE | 2020-03-09 02:17 | ECG_ITS ---
[facility] Test Date: 2020-03-09 Pat Name: Leonor Moraatya Department: Room: Gender: Female Senior Environmental Scientist: : 1945 Requested By: Tripp Malhotra Order Number: [id number] Anette MD: Ulices Staples M.D. Measurements Intervals [place] Rate: 58 P: 65 SC: 161 QRS: -7 QRSD: 106 T: -33 QT: 435 QTc: 429 Interpretive Statements SINUS BRADYCARDIA POSSIBLE LEFT ATRIAL ENLARGEMENT [-0.1mV P WAVE IN V1/V2] MODERATE T-WAVE ABNORMALITY, CONSIDER INFERIOR ISCHEMIA [-0.1+ mV T WAVE IN II/aVF] No previous ECG available for comparison Electronically Signed On 03-09-2020 21:39:10 CDT by Ulices Staples M.D. [email or web address]/[id number]
[2020-03-09] MEDS: iodixanol 320 mg/mL 100mL Btl IV (02:56)
[2020-03-09 03:13] LABS: Troponin 5 2HR 278.4 ng/L (0-10); Troponin 5 2HR Delta 45.4 ABS# (0-10)
[2020-03-09] MEDS: nitroglycerin drip 50 MG/250 ML PREMIX IV (03:32)
[2020-03-09] MEDS: heparin 5,000 unit/mL INJ 1 mL 4000 UNIT IVP (03:35)
--- NOTE | 2020-03-09 03:55 | ECG_ITS ---
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 Measurements Intervals [place] Rate: 64 P: 68 RI: 159 QRS: 7 QRSD: 106 T: -29 QT: 382 QTc: 396 Interpretive Statements SINUS RHYTHM POSSIBLE LEFT ATRIAL ENLARGEMENT [-0.1mV P WAVE IN V1/V2] ST DEVIATION AND MODERATE T-WAVE ABNORMALITY, CONSIDER INFERIOR ISCHEMIA [-0.1+ mV T WAVE IN II/aVF] No previous ECG available for comparison Electronically Signed On 03-09-2020 21:25:05 CDT by Ulices Staples M.D. [id number] f
[2020-03-09] MEDS: heparin drip 25,000 UNIT/500 ML PREMIX 18 UNIT IV (03:59)
--- NOTE | 2020-03-09 04:46 | PC.NURSE ---
Inpatient doctor at bedside.
--- NOTE | 2020-03-09 05:12 | PC.SOCIAL ---
ED CM visit: Patient to be admitted to CSU or ICU when a bed is available. Lives in [place]. Her son Brenton lives with her. No prior services or DME. She uses [facility] in [place]. Primary Care is through the [facility] in [place], usually with Dr. Noel. Denies ever having any advanced directives. She has other family locally but her son Brenton is the only one involved in her care. She will return home with him at discharge, he will provide the ride. It does not appear that patient will need any services at discharged but updated Brenton that if anything comes up we will help with arrangements.
[2020-03-09] MEDS: sodium chloride 0.9% 1,000 ML 75 ML IV ×2 (05:16→19:51)
--- NOTE | 2020-03-09 05:31 | PM.HP ---
Providers/Chief Complaint Chief Complaint: cp History of Present Illness Leonor Morataya is a 74 year old female with a past medical history of hypertension, recurrent urinary tract infections who presents to [facility] due to complaints of chest pain. Patient tells me that roughly 2 PM Saturday, she was washing the dishes, when she developed severe substernal chest pain, it was a heaviness in her chest, she thought it was GERD, but the pain radiated up to her neck, down the left shoulder, not improved with Protonix, associate with nausea, shortness of breath, she stopped washing the dishes, and the pain abated slightly, and she returned to her activities and the pain returned, so then she rested for a bit, however the pain persisted. She tells me that the pain has not abated since 2 PM Saturday, she is on a nitro drip, and the pain has somewhat improved but continues to have substernal chest pain and nausea. She tells me that as her pain did not improve over the next few hours, she called her son, who brought her to the emergency room. Patient tells me that in February she had a similar episode of chest pain, but not as severe, she had chest pain on and off for 2 weeks, she presented to her primary care provider's office, diagnosed with GERD, given Protonix, the chest pain did somewhat improved with Protonix. Work-up in the emergency room shows unstable angina, and STEMI, elevated troponins, EKG changes in inferior leads. Cardiology was consulted, patient is on nitro drip, heparin drip, received aspirin, currently n.p.o. with plans on cardiac catheterization procedure. Review of Systems Const: Denies: fever(s), chills, fatigue or malaise Eyes: Denies: change in vision or blurry vision ENMT: Denies: nasal congestion Card: Reports: chest pain, edema and dyspnea on exertion Resp: Reports: dyspnea; Denies: productive cough, non-productive cough or wheezing GI: Denies: abdominal pain, nausea, vomiting, hematemesis, diarrhea, constipation, hematochezia or melena : Denies: flank pain, dysuria or urinary frequency Musc: Denies: neck pain or back pain Skin/Breast: Denies: rash Neuro: Denies: headache(s), dizziness or vertigo Psych: Denies: anxiety or depression Endo: Denies: polyuria or polydipsia Medications/Allergies Home Medications Medication Instructions Recorded Confirmed Last Taken Type metoprolol tartrate PO 08/15/19 08/15/19 Unknown History Allergies Allergy/AdvReac Type Severity Reaction Status Date / Time nitrofurantoin Allergy Unknown Verified 08/15/19 12:47 [From Macrobid] Sulfa (Sulfonamide Allergy ALGY-Rash Verified 08/15/19 12:46 Antibiotics) Additional Medication Information Metoprolol 100 mg daily Levaquin 500 mg daily Protonix 40 mg daily PFSH Acute PFSH: Medical History (Updated 03/09/20 @ 05:40 by Ernesto Yeboah MD) GERD (gastroesophageal reflux disease) Hypertension Recurrent UTI Surgical History (Updated 03/09/20 @ 05:36 by Ernesto Yeboah MD) H/O: hysterectomy Family History (Updated 03/09/20 @ 05:38 by Ernesto Yeboah MD) Father CAD (coronary artery disease) Emphysema lung Mother CAD (coronary artery disease) Social History Smoking and tobacco status: never smoked History of recent travel: No Vitals/I&O/Wt Last Vital Signs Temp 97.8 F 03/08/20 23:58 Pulse 55 L 03/09/20 05:12 Resp 22 H 03/09/20 05:12 BP 182/85 03/09/20 05:12 Pulse Ox 95 03/09/20 05:12 03/08/20 03/08/20 03/09/20 14:59 22:59 06:59 Intake Total 25.375 / 25.375 Balance 25.375 / 25.375 Weight last 48 hrs Weight 64.41 kg Physical Exam Const: COMMON NORMALS: no acute distress and patient oriented x3 GENERAL APPEARANCE: cooperative and comfortable HENMT: COMMON NORMALS: normocephalic HEAD & SCALP: normocephalic Eye: COMMON NORMALS: Equal, round and reactive pupils present and EOMs intact bilaterally GENERAL EYE: appearance normal, both eyes and all related structures PUPIL: Yes Equal, round and reactive pupils present Neck/C-Spine: COMMON NORMALS: full ROM, no lymphadenopathy, no JVD and Thyroid normal THYROID: Thyroid normal Lymph: LYMPHATIC: no lymphadenopathy noted Resp: COMMON NORMALS: normal respiratory effort, No retractions, No use of accessory muscles and clear to auscultation bilaterally AUSCULTATION: clear to auscultation bilaterally Cardio: COMMON NORMALS: no JVD, regular rate, regular rhythm, S1 normal heart sound present, S2 normal heart sound present, No gallops present (Cardio), No clicks present (Cardio) and No murmurs present (Cardio) RATE: regular rate RHYTHM: regular rhythm HEART SOUNDS: S1 normal heart sound present and S2 normal heart sound present GI: COMMON NORMALS: Normal to inspection, nondistended, normoactive bowel sounds present, Soft to palpation, non-tender and No hepatosplenomegaly present PALPATION: Yes Soft to palpation and Yes No hepatosplenomegaly present Extremity: COMMON NORMALS: normal to inspection, full ROM and no pedal edema Neuro: COMMON NORMALS: patient oriented x3, CN's II-XII intact bilaterally, moves all extremities and no focal motor deficits Psych: COMMON NORMALS: mental status grossly normal, Normal thought process present and cooperative THOUGHT PROCESS: Normal thought process present Data : 03/09/20 00:32 03/09/20 00:32 A&P Assessment and plan (1) NSTEMI (non-ST elevated myocardial infarction): -With unstable angina -Baseline troponin 233, 120-minute to 78, and positive delta 45 -BNP was 1692 -EKG shows T wave inversions in inferior leads -Currently reporting chest pain and nausea -Received aspirin 81 mg, on a heparin drip, on a nitro drip -Cardiology has been consulted, plans on cardiac catheterization procedure early this morning Plan: -Admit to CSU -Aspirin, statin, Coreg -Continue nitroglycerin drip -Continue heparin drip -Currently n.p.o. -Plans on cardiac catheterization procedure, Dr. Rodriguez made aware -On gentle IV hydration -Patient is a full code -Heparin for DVT prophylaxis -Protonix for GI prophylaxis -Zofran and Reglan for nausea Status: Acute (2) Unstable angina: Status: Acute (3) Recurrent UTI: -Obtain urine culture, continue Rocephin Status: Acute (4) Hypertension: Status: Acute (5) GERD (gastroesophageal reflux disease): Status: Acute (6) GENOVEVA (acute kidney injury): -Gentle IV hydration Status: Acute (7) Hyponatremia: -Hypovolemic hyponatremia Status: Acute Attestations Medical Necessity Statement*: Hospitalization, outpatient with observation, for chest pain Coding Level of Care Code Acute Patient Financial Services Specialist for Chg Fwd Diagnoses NSTEMI (non-ST elevated myocardial infarction) I21.4 Unstable angina I20.0 Recurrent UTI N39.0 Hypertension I10 GERD (gastroesophageal reflux disease) K21.9 GENOVEVA (acute kidney injury) N17.9 Hyponatremia E87.1
[2020-03-09] MEDS: metoclopramide 5 mg/mL SDV 2 mL 10 MG IVP (05:37)
--- NOTE | 2020-03-09 05:45 | PC.NURSE ---
Patient vomiting for the 5th time. She has been medicated for her nausea per the MAR. Unable to control N/V. Emesis contents is yellow bile only.
--- NOTE | 2020-03-09 06:17 | ECG_ITS ---
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 Measurements Intervals [place] Rate: 55 P: 64 CO: 176 QRS: -11 QRSD: 102 T: -39 QT: 445 QTc: 429 Interpretive Statements SINUS BRADYCARDIA MODERATE T-WAVE ABNORMALITY, CONSIDER INFERIOR ISCHEMIA [-0.1+ mV T WAVE IN II/aVF] Compared to ECG 03/09/2020 03:57:34 Possible ischemia now present Sinus rhythm no longer present T-wave abnormality still present Electronically Signed On 03-09-2020 21:39:14 CDT by Ulices Staples M.D. [email or web address].[employer]/store/OM/[id number]
--- NOTE | 2020-03-09 06:33 | PC.NURSE ---
Patient appears to be sleeping peacefully at this time. NAD noted. VSS.
[2020-03-09 06:58] LABS: Troponin 5 6HR 462.4 ng/L (0-10); Troponin 5 6HR Delta 229.4 ng/L (0-12)
--- NOTE | 2020-03-09 08:45 | PM.CONSULT ---
Providers/Reason For Consult Consulting Physican/Specialty*: Jaun Rodriguez MD/Interventional Cardiology Reason for Consult*: Non ST elevation LA History of Present Illness History of Present Illness Leonor Morataya is a 74 year old female with past medical history of hypertension and recurrent UTI here for chest pain. According to patient she has been having on and off chest pain since 2 weeks. Yesterday at 2 PM she started having persistent chest pain. This was substernal, pressure like, severe in intensity. She initially thought this is her GERD symptoms. Last night she came to the emergency room with the symptoms. Her troponins have trended up. She has T wave inversions in inferior leads.Denies any prior cardiac history. Patient also has been having nausea and vomiting. Review of Systems Narrative: CONSTITUTIONAL: No fever chills weight loss or gain or night sweats. [] HEENT: Normocephalic, atraumatic.[] RESPIRATORY: No cough, sputum, hemoptysis or wheezing.[] CARDIOVASCULAR: Has chest pain GI: no nausea vomiting diarrhea. [] DIRECTOR OF GUIDANCE: No numbness, tingling, weakness or loss of function in any part of the body. [] MUSCULOSKELETAL: No knee or joint pain or rashes. [] Meds/Allergies Home Medications and Allergies Home Medications Medication Instructions Recorded Confirmed Last Taken Type levofloxacin 500 mg PO DAILY 03/09/20 03/09/20 03/08/20 History metoprolol tartrate 100 mg PO DAILY 03/09/20 03/09/20 03/08/20 History pantoprazole 40 mg PO DAILY 03/09/20 03/09/20 03/08/20 History Allergies Allergy/AdvReac Type Severity Reaction Status Date / Time nitrofurantoin Allergy Unknown Verified 08/15/19 12:47 [From Macrobid] Sulfa (Sulfonamide Allergy ALGY-Rash Verified 08/15/19 12:46 Antibiotics) Current Medications Current Medications Generic Name Dose Route Start Last Admin Trade Name Freq PRN Reason Stop Dose Admin Heparin Sodium/Sodium Chloride 25,000 unit in 500 mls @ 0 mls/hr 03/09/20 03:15 03/09/20 03:59 Heparin Drip IV 14 unit/kg/hr .Q0M [place] 18 mls/hr Administration Protocol Per Protocol Nitroglycerin/Dextrose 50 mg in 250 mls @ 0 mls/hr 03/09/20 03:15 03/09/20 07:34 Nitroglycerin Drip IV 85 mcg/min .Q0M [place] 25.5 mls/hr Titration Protocol Per Protocol Sodium Chloride 1,000 mls @ 75 mls/hr 03/09/20 05:16 03/09/20 05:16 Sodium Chloride 0.9% IV 75 mls/hr .[id number] [place] Administration Nitroglycerin 0.4 mg 03/09/20 01:35 03/09/20 01:40 Nitrostat SUBLINGUAL 1 tab Q5M PRN Administration CHEST PAIN PFSH Acute PFSH: Medical History GERD (gastroesophageal reflux disease) Hypertension Recurrent UTI Surgical History H/O: hysterectomy Family History Father CAD (coronary artery disease) Emphysema lung Mother CAD (coronary artery disease) Social History Smoking and tobacco status: never smoked History of recent travel: No Vitals/I&O/Wt Last Vital Signs Temp 97.8 F 03/08/20 23:58 Pulse 61 03/09/20 08:30 Resp 18 03/09/20 08:30 BP 114/69 03/09/20 08:30 Pulse Ox 95 03/09/20 08:30 03/08/20 03/09/20 03/09/20 22:59 06:59 14:59 Intake Total 44.375 / 44.375 49.0 / 49.0 Balance 44.375 / 44.375 49.0 / 49.0 Weight last 48 hrs Weight 142 lb Physical Exam Narrative: EXAM NARRATIVE: GENERAL: Patient is alert, awake and oriented x3. [] NECK: No jugular vein distension. [] HEENT: No cyanosis. No icterus. No pallor. [] HEART: Regular S1 and S2. No murmur, rub or gallop. [] LUNGS: Clear to auscultate bilaterally. [] ABDOMEN: Soft, nontender and nondistended. Positive bowel sounds. No guarding, rebound or tenderness. [] CENTRAL NERVOUS SYSTEM: Grossly nonfocal. [] EXTREMITIES: Lower extremities with no edema bilaterally. Pulses palpable in the lower extremities, both dorsalis pedis and posterior tibial. [] A&P Assessment and plan (1) NSTEMI (non-ST elevated myocardial infarction): Status: Acute (2) Hypertension: Status: Acute Patient has atypical chest pain with associated elevation in troponins and EKG changes. This is consistent with an non-ST elevation LA. We will proceed with coronary angiogram with possible intervention today. I had a detailed discussion about risks and benefits of the procedure. Told about risks including bleeding, infection, abnormal heart rhythm, heart attack, stroke or . Patient verbalized understanding and is to proceed with the procedure. Continue aspirin and heparin drip. Order echocardiogram. IV fluids. UTI management per primary team. Coding Level of Care Code Acute Manual Arts Therapist for Antonio Bacon Diagnoses NSTEMI (non-ST elevated myocardial infarction) I21.4 Hypertension I10
--- NOTE | 2020-03-09 09:00 | PC.NURSE ---
Report called to Cate Farris RN at 1131
[2020-03-09] MEDS: cefTRIAXone 1,000 MG in sodium chloride 0.9% (plus) 50 ML 100 MG IV (09:09)
--- NOTE | 2020-03-09 10:38 | XACV_ITS ---
Exam Room: [facility] Ht: 160 cm Wt: 64 kg BSA: 1.70 m2 Gender: Female : 1945 Any Known Allergies: Other Exam Priority: Routine Procedure(s): Procedure Description: Diagnostic procedure Procedure Description: PCI procedure Procedure Description: Drug Eluting Coronary Stent Procedure Description: PTCA Procedure Description: Miscellaneous Procedure Description: ACT Procedure Description: Coronary Angiography Diagnostic Cath Status: Urgent Diagnostic Findings * CX has 0% stenosis. Gives rise to one OM branch. No significant stenosis noted. Left circumflex system is providing collaterals to right-sided PLV. * mLAD: Moderate to severe 60-70% stenosis, MARIBELL: 3 flow. * Mid Right Coronary Artery: Subacute thrombotic 100% occlusion, MARIBELL: 0 flow. * LM has 0% stenosis. * Coronary angiography shows right dominance. PCI Status: Urgent PCI Indication: NSTE - ACS Interventional Findings * We engaged the RCA with JR4 guide catheter. IV heparin was administered to maintain an ACT of more than 250 seconds. Initially we attempted to cross the mid RCA thrombotic occlusion with 0.014 run-through wire. However because of subacute presentation, patient's thrombus had organized and run-through wire was not able to cross the stenosis. We then switched to hydrophilic Fielder XT guidewire. This wire was able to cross the thrombotic occlusion. We used 2.0 x 12 mm semi-compliant balloon to predilate the stenosis. This was followed by placement of a 3.5 x 30 mm resolute Rittman drug-eluting stent. At this time final angiogram was performed that showed MARIBELL-3 flow, excellent stent expansion without any residual stenosis. Guidewire and guide catheter were removed. Patient left the Tank Builder in a stable condition.. * Mid Right Coronary Artery: 100% stenosis treated with AB MINI TREK 2.00X12 RX BALLOON and MDT R PRICE 3.5X30 KRISHNA. 0% residual stenosis, MARIBELL: 3 flow. Conclusions 1. Total thrombotic occlusion of mid RCA with left to right collaterals. There is severe coronary artery disease with two vessel disease. 2. Moderate to severe mid LAD stenosis. 3. Mid Right Coronary Artery was treated with Balloon and Drug Eluting Stent. Recommendations * Admit to ICU. * Aggrastat bolus. * Aspirin and Plavix for at least 1 year. * High intensity statin therapy. * Beta-derrick and lisinopril therapy. * Order * echocardiogram. * Patient has residual moderate to severe mid LAD stenosis. We will follow patient in office and perform outpatient stress test in about 1 month. If stress test is abnormal in anterior wall territory, will perform staged PCI of mid LAD. Interventional RX Recommendation: PCI w/o planned CABG Diagnostic RX Recommendation: PCI w/o planned CABG Anticoagulation: Heparin Pressures Phase:Rest AO : 180 / 86 ( 126 ) @ 7:07:00 AM 190 / 86 ( 131 ) @ 7:15:00 AM 159 / 78 ( 115 ) @ 7:28:00 AM 117 / 49 ( 80 ) @ 7:43:00 AM 102 / 49 ( 74 ) @ 7:50:00 AM 108 / 52 ( 73 ) @ 7:51:00 AM 147 / 70 ( 104 ) @ 7:53:00 AM Clinical Evaluation EBL: 5mL-10mL Procedural Details Procedure Consent Obtained. Pre-Procedure Time Out. Identified patient by full name and date of as verbalized by the patient/guarantor. Does the consent match the physician's order: Yes. Accurate & Complete Informed Consent: Yes. Inpatient/Outpatient History & Physical on Chart: Yes. If H&P is completed, is and addenduem needed: No; If yes, is the addendum complete: N/A. Visualize and Verify Site with Patient/Guarantor: N/A. Relevant Radiology Images available: N/A. Pre-op teaching completed and patient verbalized understanding. The risks, benefits, and alternatives of sedation and/or procedure were discussed by physician. The patient agrees to continue. Procedure started. [facility] Clinical Fraility Score: 3: Managing Well. Tank Builder Indications: ACS <= 24 hours. Chest Pain Symptom Assessment: Typical Angina Symptoms. Cardiovascular Instability: No. Correct patient, site and procedure confirmed by cath team. PERRLA. Strong, equal hand calf skinner bilaterally. Lungs clear x 5 lobes. IV Site on Arrival: 20 gauge in the right forearm. IV Site on Arrival: 20 gauge in the left anticubital. IV Fluids: 0.9% NaCl at KVO. 0 mL infused prior to molder labels. Oxygen started at 2liters/min via nasal canula. bilateral groins was prepped with chloroprep then draped in the usual sterile fashion. right radial was prepped with chloroprep then draped in the usual sterile fashion. Pre Procedural Pulses: bilateral radial was 3+. Pre Procedural Pulses: bilateral dorsalis pedis was Doppled. Pre Procedural Pulses: bilateral posterior tibial was Doppled. Baseline sample Acquired. HR: 67 BPM. Physician arrived. Equipment: 6F - Radial. Cardiac Cath Pack. ACIST Manifold Kit Model BT 2000. Heparinized Saline (2 units/mL), 1000 mL bag. Physician scrubbed in. Immediate Pre-Procedure Time Out. Correct Patient: Yes; Correct Procedure: Yes; Correct Site: Yes; Correct Patient Position: Yes; Correct Supplies: Yes; Dried Flammable Prep: Yes; Blood Products Available: N/A;. Lidocaine 1% infiltrated to the right radial. Arterial access obtained. A 6 kittitian TIG catheter in over wire. Multiple views taken of left coronary artery. Catheter redirected to the RCA. Catheter out. ACT drawn. Results 216 seconds. Therapeutic limits - pre-heparin administration 90-150 seconds and monitoring heparin during a vascular procedure >250 seconds. 6 kittitian JR 4 guide catheter was inserted over the wire. Multiple views taken of right coronary artery. Runthrough guidewire was advanced through the guide catheter to lesion in the mid RCA. Wire out. Fielder XT guidewire was advanced through the guide catheter to lesion in the MID RCA. Dr Rodriguez discussed case with Dr Gordillo over phone. Inflation number : 1 A AB MINI TREK 2.00X12 RX BALLOON was prepped and advanced across the Mid RCA , then inflated to 10 SIRI for 0:15 seconds. Inflation Number : 2 A NELLY MORANYX 3.5X30 KRISHNA -Lot Number# [id number] exp date 11/11/2020 was prepped and advanced across the Mid RCA. The stent was deployed at 12 SIRI for 0:25 seconds. Stent balloon out over wire. Wire out. Guide catheter out. Physician scrubbed out. A TR Band was successful obtaining hemostatsis at the Right Radial artery insertion site. TR band placed. Hemostasis obtained. Post Procedure: Pulses reassessed and unchanged. PERRLA. Strong, equal hand calf skinner bilaterally. No VTE prophylaxis required. Medication's Wasted: Lidocaine 1% = 18 mL. Medication's Wasted: Nitro = 49.8 mg. Medication's Wasted: Other = hydralazine 10 mg. Nitro drip stopped at this time. Total IV fluids: 300 mL. Contrast type used: Omnipaque 300 mgI/mL, 500 mL bottle. ACT drawn. Results 380 seconds. Therapeutic limits - pre-heparin administration 90-150 seconds and monitoring heparin during a vascular procedure >250 seconds. Post-op diagnosis: NSTEMI. PCI Indication: NSTE. Complications: none. Estimated blood loss: 5mL-10mL. Procedure completed. Patient transferred by wheelchair to ICU. Vital chart was stopped. Access Site Site: Right Radial artery Sheath Size: 6 Fr Hemostasis Method: TR Band Hemostasis Success: Successful Procedure Medications Start: 12:02 PM Stop: 12:02 PM Medication: Versed Amount: 1 mg Route: I.V. Start: 12:02 PM Stop: 12:02 PM Medication: Fentanyl Amount: 50 mcg Route: I.V. Start: 12:05 PM Stop: 12:05 PM Medication: Nitrogylcerin Amount: 200 mcg Route: I.A. Start: 12:05 PM Stop: 12:05 PM Medication: Plavix Amount: 600 mg Route: P.O. Start: 12:07 PM Stop: 12:07 PM Medication: Heparin Amount: 3000 units Route: I.V. Start: 12:15 PM Stop: 12:15 PM Medication: Versed Amount: 1 mg Route: I.V. Start: 12:15 PM Stop: 12:15 PM Medication: Fentanyl Amount: 50 mcg Route: I.V. Start: 12:17 PM Stop: 12:17 PM Medication: Hydralazine Amount: 10 mg Route: I.V. Start: 12:20 PM Stop: 12:20 PM Medication: Heparin Amount: 3000 units Route: I.V. Start: 12:32 PM Stop: 12:32 PM Medication: Nitrogylcerin Amount: 5 mcg/min Route: I.V. drip Start: 12:42 PM Stop: 12:42 PM Medication: Nitrogylcerin Amount: 10 mcg/min Route: I.V. drip Start: 1:01 PM Stop: 1:01 PM Medication: Aggrastat 12.5 mg/250 mL Amount: 32 ml Route: I.V. bolus I, the attending physician, have reviewed and verified all procedure medications. Yes, all medications given per verbal order History/Risk Factors Hypertension: Yes Dyslipidemia: No Peripheral Arterial Disease (PAD): No Myocardial Infarction (OK): No Obesity: No Renal Disease: No Tobacco Use: Never Prior Interventions PCI: No CABG: No Valve Surgery: No Report Signatures Finalized by Jaun Rodriguez MD on 03/12/2020 07:45 PM
[2020-03-09] MEDS: atorvastatin 40 mg Tablet PO (11:00)
[2020-03-09] MEDS: carvedilol 3.125 mg Tablet PO ×2 (11:00→18:12)
[2020-03-09] MEDS: aspirin 81 mg Chew Tablet 243 MG PO (11:05)
--- NOTE | 2020-03-09 11:53 | W.PM.OPSUD ---
Surgery/Procedure H&P Update DATE OF PROCEDURE: March 09, 2020 DATE H&P PERFORMED: 03/09/20 H&P UPDATE INFORMATION: I have reviewed H&P completed within last 30 days, I have examined patient prior to procedure and No changes to prior documentation PREOP DIAGNOSIS: NSTEMI PRIMARY INDICATION FOR PROCEDURE: NSTEMI PLANNED PROCEDURE: Coronary angiography/left heart cath with possible percutaneous coronary intervention PATIENT REASSESSED PRIOR TO SEDATION, WITH NO CHANGE NOTED: Yes PHYSICAL EXAM: alert, oriented x 3 and clear to auscultation bilaterally AIRWAY EVAL/ANESTHESIA PLAN: normal airway, ASA II, Risks, benefits & alternatives of sedation and/or procedure discussed and Patient agrees to continue as planned
--- NOTE | 2020-03-09 12:12 | PM.PN ---
Subjective Subjective: Interval history: No Acute events . Vitals and labs have been reviewed. Medications: Reviewed: Yes Medication Review Details: Metoprolol 100 mg daily Levaquin 500 mg daily Protonix 40 mg daily Vitals/I&O/Wt Last Vital Signs Temp 97.8 F 03/08/20 23:58 Pulse 56 L 03/09/20 11:26 Resp 17 03/09/20 11:26 BP 131/79 03/09/20 11:26 Pulse Ox 95 03/09/20 11:26 03/08/20 03/09/20 03/09/20 22:59 06:59 14:59 Intake Total 44.375 / 44.375 1099.0 / 1099.0 Balance 44.375 / 44.375 1099.0 / 1099.0 Weight last 48 hrs Weight 64.41 kg Physical Exam Const: COMMON NORMALS: patient oriented x3 HENMT: COMMON NORMALS: normocephalic, atraumatic, hearing grossly normal bilaterally and external ears normal HEAD & SCALP: normocephalic and atraumatic EXTERNAL EAR: Yes external ears normal Eye: COMMON NORMALS: no scleral icterus GENERAL EYE: appearance normal, both eyes and all related structures Chest: COMMONS NORMALS: normal inspection of the chest and normal palpation of entire chest wall CHEST: Yes Symmetrical chest wall rise Resp: COMMON NORMALS: normal respiratory effort, No retractions, No use of accessory muscles and clear to auscultation bilaterally EFFORT & INSPECTION: Yes symmetric chest movement AUSCULTATION: clear to auscultation bilaterally Cardio: COMMON NORMALS: regular rate, regular rhythm, S1 normal heart sound present, S2 normal heart sound present, No gallops present (Cardio), No murmurs present (Cardio), No rub (Cardio) and Peripheral pulses 2+ throughout RATE: regular rate RHYTHM: regular rhythm HEART SOUNDS: S1 normal heart sound present and S2 normal heart sound present PERIPHERAL PULSES: Peripheral pulses 2+ throughout GI: COMMON NORMALS: Normal to inspection, nondistended, normoactive bowel sounds present, Soft to palpation, non-tender, No hepatosplenomegaly present and no masses AUSCULTATION: Yes normoactive bowel sounds PALPATION: Yes Soft to palpation and Yes No hepatosplenomegaly present RECTAL EXAM: deferred Extremity: COMMON NORMALS: no clubbing, cyanosis or edema and no pedal edema Neuro: COMMON NORMALS: patient oriented x3 Data : 03/09/20 00:32 03/09/20 00:32 A&P Assessment and plan (1) NSTEMI (non-ST elevated myocardial infarction): -With unstable angina -Baseline troponin 233, 120-minute to 78, and positive delta 45 -BNP was 1692 -EKG shows T wave inversions in inferior leads -Currently reporting chest pain and nausea -Received aspirin 81 mg, on a heparin drip, on a nitro drip -Cardiology has been consulted, plans on cardiac catheterization procedure early this morning Plan: -Admit to [facility] -Aspirin, statin, Coreg -Continue nitroglycerin drip -Continue heparin drip -Currently n.p.o. -Plans on cardiac catheterization procedure, Dr. Rodriguez made aware -On gentle IV hydration -Patient is a full code -Heparin for DVT prophylaxis -Protonix for GI prophylaxis -Zofran and Reglan for nausea Status: Acute (2) Unstable angina: Status: Acute (3) Recurrent UTI: -Obtain urine culture, continue Rocephin Status: Acute (4) Hypertension: Status: Acute (5) GERD (gastroesophageal reflux disease): Status: Acute (6) GENOVEVA (acute kidney injury): -Gentle IV hydration Status: Acute (7) Hyponatremia: -Hypovolemic hyponatremia Status: Acute Attestations Medical Necessity Statement*: Patient is doing hospital for an NSTEMI management Coding Level of Care Code Acute Senior Office Assistant for [facility] Fwd Diagnoses NSTEMI (non-ST elevated myocardial infarction) I21.4 Unstable angina I20.0 Recurrent UTI N39.0 Hypertension I10 GERD (gastroesophageal reflux disease) K21.9 GENOVEVA (acute kidney injury) N17.9 Hyponatremia E87.1
--- NOTE | 2020-03-09 13:37 | PC.NURSE ---
recd post cath with tr band to right wist. no hematoma. cap refil 3 sec. alert and oriented. c/o nsusea.
--- NOTE | 2020-03-09 13:51 | USCV_ITS ---
Leonor Morataya Age: 74 Gender: F : 1945 Exam Date: 03/09/2020 16:49 Ordering Phys: Ernesto Yeboah MD Technologist: Padma Calvo Exam Location: [facility] [place] Indication: stemi BP: 124 / 60 HR: 79 Rhythm: Sinus Technical Quality: Adequate MEASUREMENTS (Male / Female) Normal Values 2D ECHO LV Diastolic Diameter PLAX 4.5 cm 4.2 - 5.9 / 3.9 - 5.3 cm LV Systolic Diameter PLAX 1.8 cm IVS Diastolic Thickness 1.3 cm 0.6 - 1.0 / 0.6 - 0.9 cm IVS Systolic Thickness 2.1 cm LVPW Diastolic Thickness 0.9 cm 0.6 - 1.0 / 0.6 - 0.9 cm LVPW Systolic Thickness 1.6 cm LV Ejection Fraction 2D Teich 89.8 % LV Ejection Fraction MOD 2C 68.4 % LV Ejection Fraction 2C AL 68.5 % LA Diameter 3.2 cm LA Width 2.4 cm LA Height 3.3 cm RA Width 3.1 cm RA Height 3.3 cm M-MODE LV Diastolic Diameter MM 4.6 cm 4.2 - 5.9 / 3.9 - 5.3 cm LV Systolic Diameter MM 2.5 cm LV Ejection Fraction MM Teich 78.2 % IVS Diastolic Thickness MM 1.1 cm 0.6 - 1.0 / 0.6 - 0.9 cm IVS Systolic Thickness MM 1.4 cm LVPW Diastolic Thickness MM 0.9 cm 0.6 - 1.0 / 0.6 - 0.9 cm LVPW Systolic Thickness MM 1.7 cm Aortic Annulus Diameter 2.4 cm LA Ao Ratio MM 1.3 MV E Point Septal Separation 0.3 cm DOPPLER MV Peak Velocity 115.0 cm/s MV Area PHT 4.4 cm squared Mitral E to A Ratio 1.2 MV E' Velocity 51.0 cm/s Mitral E to MV E' Ratio 14.1 Mitral E to LV E' Lateral Ratio 16.0 Mitral E to LV E' Septal Ratio 12.6 TR Peak Velocity 230.3 cm/s TR Peak Gradient 21.2 mmHg Right Atrial Pressure 3.0 mmHg Pulmonary Artery Systolic Pressu 24.2 mmHg PV Peak Velocity 109.7 cm/s RV Acceleration Time 0.1 s FINDINGS Left Ventricle Normal left ventricular size, systolic function and wall thickness. LVEF is 55-60%.No regional wall motion abnormalities are noted. Mild left ventricular hypertrophy is present. Diastolic function is abnormal Right Ventricle The right ventricle is normal in size and function. Right Atrium The right atrium is normal in size. Left Atrium The left atrium is normal in size. Mitral Valve Structurally normal mitral valve without significant stenosis or prolapse. There is mild mitral regurgitation. Aortic Valve Structurally normal aortic valve. Doppler gradients not measured, however valve seems to open well. Tricuspid Valve Structurally normal tricuspid valve without significant stenosis. There is mild tricuspid regurgitation. RVSP is 35- 40mmHg. Mild pulmonary hypertension is noted. Pulmonic Valve Structurally normal pulmonic valve without significant stenosis. There is trace pulmonic regurgitation. Pericardium Normal pericardium without effusion. Aorta Normal ascending aorta dimension. CONCLUSIONS LV systolic function is normal with EF of 55-60% with no regional wall motion abnormalities Diastolic function is abnormal Mild pulmonary hypertension is noted No comparison studies present Jaun Rodriguez MD (Electronically Signed) Final Date: 10 March 2020 08:12 S
[2020-03-09 14:33] LABS: Chol HDL Ratio 2.61 mg/dL (0.0-4.40); Cholesterol 167 mg/dL (0-200); HDL Cholesterol 64 mg/dL (60-100); LDL Cholesterol Calculated 95 mg/dL (50-129); LDL HDL Ratio 1.48 RATIO (0.00-3.22); Thyroid Stimulating Hormone 3.19 uIU/mL (0.27-4.20); Triglycerides 42 mg/dL (0-150)
--- NOTE | 2020-03-09 15:52 | PC.NURSE ---
2ml air removed from tr band. no oozing.
--- NOTE | 2020-03-09 16:26 | PC.NURSE ---
2 ml. removed from tr band
--- NOTE | 2020-03-09 16:30 | PC.NURSE ---
took 1 jello container. no nausea son visiting.
--- NOTE | 2020-03-09 17:07 | PC.NURSE ---
echo in progress
[2020-03-09] MEDS: perflutren protein-a microsphr 0.22 mg/mL SDV 3 mL 1 ML IV (17:42)
[2020-03-09] MEDS: ALPRAZolam 0.25 mg Tablet PO (19:50)
[2020-03-09] MEDS: acetaminophen 325 mg Tablet 650 MG PO (19:51)
[2020-03-10] VITALS (31 sets, daily range): BP systolic 104–174; BP diastolic 51–92; PULSE 58–94; RESP 16–32; TEMP 36.7–37.2; O2SAT 96–99
[2020-03-10 03:56] LABS: Basophils % 0.3 %; Eosinophils % 0.1 %; Hematocrit 31.9 % (37.0-47.0); Hemoglobin 10.2 g/dL (11.5-15.3); Lymphocytes # 1.2 10^3/uL (0.8-4.8); Lymphocytes % 16.6 %; Mean Corpuscular Hemoglobin 29.2 pg (28.0-34.0); Mean Corpuscular Volume 91.4 fL (81-99); Mean Platelet Volume 13.5 fL (7.4-10.4); Monocytes # 0.5 10^3/uL (0.2-0.9); Monocytes % 7.6 %; Neutrophils # 5.22 10^3/uL (1.8-7.7); Nucleated Red Blood Cells % 0 %; Platelet Count 92 10^3/cmm (130-400); Red Blood Count 3.49 10^6/uL (4.1-5.3)
[2020-03-10 04:15] LABS: Alanine Aminotransferase 16 U/L (0-33); Alkaline Phosphatase 84 IU/L (35-105); Anion Gap 11.8 (5-19); Aspartate Amino Transferase 69 U/L (0-32); Blood Urea Nitrogen 15 mg/dL (8-23); Calcium 9.9 mg/dL (8.5-10.5); Carbon Dioxide 22 mmol/L (22-29); Chloride 107 mmol/L (98-107); Globulin 2.2 g/dL (1.3-4.6); Glucose 110 mg/dL (65-115); Magnesium 2.1 mg/dL (1.7-2.3); Osmolality Calculated 285 mOsm/kg (285-295); Phosphorus 2.3 mg/dL (2.5-4.5); Potassium 3.8 mmol/L (3.5-5.1); Sodium 137 mmol/L (136-145); Total Bilirubin 0.4 mg/dL (0.15-1.2); Total Protein 5.2 g/dL (6.6-8.7)
[2020-03-10 04:58] LABS: Slide Review Slide Review Perform
[2020-03-10] MEDS: atorvastatin 40 mg Tablet PO (08:15)
[2020-03-10] MEDS: clopidogrel 75 mg Tablet PO (08:15)
[2020-03-10] MEDS: cefTRIAXone 1,000 MG in sodium chloride 0.9% (plus) 50 ML 100 MG IV (08:15)
[2020-03-10] MEDS: carvedilol 3.125 mg Tablet PO ×2 (08:15→17:48)
[2020-03-10] MEDS: aspirin 81 mg EC Tablet PO (08:15)
--- NOTE | 2020-03-10 09:37 | PM.PN ---
Subjective Subjective: Interval history: Patient underwent successful PCI of mid RCA. Patient is doing well. She denies any complaints of chest pain, shortness of breath or palpitations. Radial artery access site does not show any hematoma. Medications: Reviewed: Yes Vitals/I&O/Wt Last Vital Signs Temp 98.6 F 03/10/20 04:00 Pulse 62 03/10/20 05:15 Resp 19 H 03/10/20 05:15 BP 174/82 03/10/20 05:00 Pulse Ox 97 03/10/20 05:15 03/09/20 03/10/20 03/10/20 22:59 06:59 14:59 Intake Total 461.625 / 1560.625 Output Total 0 / 0 Balance 461.625 / 1560.625 0 / 1560.625 Weight last 48 hrs Weight 142 lb Physical Exam Narrative: EXAM NARRATIVE: GENERAL: Patient is alert, awake and oriented x3. [] NECK: No jugular vein distension. [] HEENT: No cyanosis. No icterus. No pallor. [] HEART: Regular S1 and S2. No murmur, rub or gallop. [] LUNGS: Clear to auscultate bilaterally. [] ABDOMEN: Soft, nontender and nondistended. Positive bowel sounds. No guarding, rebound or tenderness. [] CENTRAL NERVOUS SYSTEM: Grossly nonfocal. [] EXTREMITIES: Lower extremities with no edema bilaterally. Pulses palpable in the lower extremities, both dorsalis pedis and posterior tibial. [] Data : 03/10/20 03:30 03/10/20 03:30 A&P Assessment and plan (1) NSTEMI (non-ST elevated myocardial infarction): Status: Acute (2) Hypertension: Status: Acute Patient had presented with non-ST elevation TX. She underwent cardiac catheterization yesterday. Heart cath showed totally occluded mid RCA artery with collaterals from left system. This likely was a subacute occlusion given no ST elevations on EKG and moderate elevation of troponins. She underwent successful percutaneous revascularization to RCA with drug-eluting stent x1. She has a moderate to severe mid LAD stenosis that was not treated. Continue aspirin and Plavix. Continue high intensity statin therapy. Beta-derrick and lisinopril. Will recommend keeping patient in the hospital for 1 more night. Her hemoglobin had a significant decrease compared to yesterday. No active bleeding noted. Need repeat CBC. As outpatient we will do stress test to assess ischemia in LAD territory as stenosis is moderate to severe. If stress test shows ischemia in the anterior wall, will need staged PCI to LAD. Attestations Medical Necessity Statement*: Care expected to cross 2 midnights. Patient status post acute non-ST elevation TX and revascularization. Coding Level of Care Code Acute Residential Youth Counselor for [facility] Diagnoses NSTEMI (non-ST elevated myocardial infarction) I21.4 Hypertension I10
--- NOTE | 2020-03-10 14:52 | PC.NURSE ---
Pt transferred to room 111-1 via wheelchair with cardiac surgeon in place. VSS; no s/s distress. Report given to receiving nurse, Korin. All questions answered. Pt ambulated from wheelchair to bed with standby assistance. All personal belongings sent with pt.
--- NOTE | 2020-03-10 16:02 | P.PN_ITS ---
Subjective Subjective: Interval history: No acute events overnight. Patient underwent RCA intervention yesterday. Post intervention she is currently not experiencing any chest pain, shortness of breath, she is tolerating diet well. Radial artery access site is clean, no hematoma, pulses are equal in both upper extremity. Vitals and labs have been reviewed Medications: Reviewed: Yes Vitals/I&O/Wt Last Vital Signs Temp 98.0 F 03/10/20 15:31 Pulse 76 03/10/20 15:31 Resp 23 H 03/10/20 15:31 BP 156/92 03/10/20 15:31 Pulse Ox 99 03/10/20 15:31 03/10/20 03/10/20 03/10/20 06:59 14:59 22:59 Intake Total 835 / 2395.625 650 / 650 Output Total 0 / 0 Balance 835 / 2395.625 650 / 650 Weight last 48 hrs Weight 64.41 kg Physical Exam Const: COMMON NORMALS: patient oriented x3 HENMT: COMMON NORMALS: normocephalic, atraumatic, hearing grossly normal bilaterally and external ears normal HEAD & SCALP: normocephalic and atraumatic EXTERNAL EAR: Yes external ears normal Eye: COMMON NORMALS: no scleral icterus GENERAL EYE: appearance normal, both eyes and all related structures Chest: COMMONS NORMALS: normal inspection of the chest and normal palpation of entire chest wall CHEST: Yes Symmetrical chest wall rise Resp: COMMON NORMALS: normal respiratory effort, No retractions, No use of accessory muscles and clear to auscultation bilaterally EFFORT & INSPECTION: Yes symmetric chest movement AUSCULTATION: clear to auscultation bilaterally Cardio: COMMON NORMALS: regular rate, regular rhythm, S1 normal heart sound present, S2 normal heart sound present, No gallops present (Cardio), No murmurs present (Cardio), No rub (Cardio) and Peripheral pulses 2+ throughout RATE: regular rate RHYTHM: regular rhythm HEART SOUNDS: S1 normal heart sound present and S2 normal heart sound present PERIPHERAL PULSES: Peripheral pulses 2+ throughout GI: COMMON NORMALS: Normal to inspection, nondistended, normoactive bowel sounds present, Soft to palpation, non-tender, No hepatosplenomegaly present and no masses AUSCULTATION: Yes normoactive bowel sounds PALPATION: Yes Soft to palpation and Yes No hepatosplenomegaly present RECTAL EXAM: deferred Extremity: COMMON NORMALS: no clubbing, cyanosis or edema and no pedal edema Neuro: COMMON NORMALS: patient oriented x3 Data : 03/10/20 03:30 03/10/20 03:30 Micro: Microbiology 03/09/20 00:30 Urine Culture - Preliminary Urine,Clean Catch A&P Assessment and plan (1) NSTEMI (non-ST elevated myocardial infarction): -S/P Patient underwent RCA intervention yesterday. Post intervention she is currently not experiencing any chest pain, shortness of breath, she is tolerating diet well. Radial artery access site is clean, no hematoma, pulses are equal in both upper extremity. Continue aspirin 81 mg oral, Plavix 75 mg oral daily, atorvastatin 80 mg oral day. Carvedilol 3.125 mg q12 h daily. Nitro drip has been asked, and heparin drip has been stopped. Status: Acute (2) Hypertension: Continue Carvedilol 3.125 mg q12 h daily Status: Acute (3) UTI (urinary tract infection): Continue ceftriaxone 1 g oral daily. Status: Acute (4) Recurrent UTI: -Obtain urine culture, continue Rocephin Status: Acute (5) GERD (gastroesophageal reflux disease): Continue Protonix 40 mg oral daily. Status: Acute (6) Hyponatremia: -Hypovolemic hyponatremia resolved. Status: Acute Additional A&P Information DVT PPX; Lovenox 40 mg sc daily Code status :Full code Attestations Medical Necessity Statement*: Patient needs to be in hospital for continued management NSTEMI status post cardiac cath. Coding Level of Care Code Acute Funeral Service Licensee for [facility] Diagnoses NSTEMI (non-ST elevated myocardial infarction) I21.4 Hypertension I10 UTI (urinary tract infection) N39.0 Recurrent UTI N39.0 GERD (gastroesophageal reflux disease) K21.9 Hyponatremia E87.1
--- NOTE | 2020-03-10 19:49 | PC.NURSE ---
Patient resting in bed watching tv. Denies pain at this time. Assessment completed as documented.
[2020-03-10] MEDS: atorvastatin 40 mg Tablet 80 MG PO (20:27)
[2020-03-11 03:35] VITALS: BP 155/76; PULSE 73; RESP 23; TEMP 37.2; O2SAT 95
[2020-03-11 04:08] LABS: Basophils % 0.6 %; Eosinophils % 0.7 %; Hematocrit 33.2 % (37.0-47.0); Hemoglobin 10.5 g/dL (11.5-15.3); Lymphocytes # 1.2 10^3/uL (0.8-4.8); Lymphocytes % 21.1 %; Mean Corpuscular HGB Conc 31.6 g/dL (30.0-36.0); Mean Corpuscular Hemoglobin 28.5 pg (28.0-34.0); Mean Platelet Volume 14.1 fL (7.4-10.4); Monocytes # 0.5 10^3/uL (0.2-0.9); Monocytes % 9.9 %; Neutrophils # 3.68 10^3/uL (1.8-7.7); Neutrophils % 67.5 %; Nucleated Red Blood Cells % 0 %; Platelet Count 90 10^3/cmm (130-400); Red Blood Count 3.69 10^6/uL (4.1-5.3); Red Cell Distribution Width 12.8 % (12.1-15.1); White Blood Count 5.5 10^3/uL (4.0-10.0)
[2020-03-11 04:32] LABS: Alanine Aminotransferase 19 U/L (0-33); Albumin Level 2.9 g/dL (3.5-5.2); Alkaline Phosphatase 87 IU/L (35-105); Anion Gap 9.8 (5-19); Aspartate Amino Transferase 45 U/L (0-32); Blood Urea Nitrogen 14 mg/dL (8-23); Calcium 9.6 mg/dL (8.5-10.5); Carbon Dioxide 25 mmol/L (22-29); Chloride 107 mmol/L (98-107); Globulin 2.4 g/dL (1.3-4.6); Glucose 116 mg/dL (65-115); Magnesium 2.1 mg/dL (1.7-2.3); Osmolality Calculated 287 mOsm/kg (285-295); Phosphorus 1.7 mg/dL (2.5-4.5); Potassium 3.8 mmol/L (3.5-5.1); Sodium 138 mmol/L (136-145); Total Bilirubin 0.4 mg/dL (0.15-1.2); Total Protein 5.3 g/dL (6.6-8.7)
[2020-03-11 05:07] LABS: Slide Review Slide Review Perform
[2020-03-11 08:00] VITALS: BP 178/96; PULSE 69; RESP 18; TEMP 36.9; O2SAT 96
--- NOTE | 2020-03-11 08:00 | PC.NURSE ---
pt a/o, sitting on side of bed eating breakfast. no c/c of acute distress noted. assisted to restroom with minimal assist and back to bed. call light with in reach. will continue to monitor and provide support and safety.
[2020-03-11] MEDS: pantoprazole DR 40 mg Tablet PO (08:17)
[2020-03-11] MEDS: carvedilol 3.125 mg Tablet PO (08:17)
[2020-03-11] MEDS: clopidogrel 75 mg Tablet PO (08:17)
[2020-03-11] MEDS: aspirin 81 mg EC Tablet PO (08:17)
[2020-03-11] MEDS: cefTRIAXone 1,000 MG in sodium chloride 0.9% (plus) 50 ML 100 MG IV (08:19)
--- NOTE | 2020-03-11 08:33 | PM.PN ---
Subjective Subjective: Interval history: Patient has been doing well. She denies any complaints of chest pain, shortness of breath or palpitations. Blood pressure is high today. Vitals/I&O/Wt Last Vital Signs Temp 98.5 F 03/11/20 08:00 Pulse 69 03/11/20 08:00 Resp 18 03/11/20 08:00 BP 178/96 03/11/20 08:00 Pulse Ox 96 03/11/20 08:00 03/10/20 03/11/20 03/11/20 22:59 06:59 14:59 Intake Total 360 / 1010 Balance 360 / 1010 Physical Exam Narrative: EXAM NARRATIVE: GENERAL: Patient is alert, awake and oriented x3. [] NECK: No jugular vein distension. [] HEENT: No cyanosis. No icterus. No pallor. [] HEART: Regular S1 and S2. No murmur, rub or gallop. [] LUNGS: Clear to auscultate bilaterally. [] ABDOMEN: Soft, nontender and nondistended. Positive bowel sounds. No guarding, rebound or tenderness. [] CENTRAL NERVOUS SYSTEM: Grossly nonfocal. [] EXTREMITIES: Lower extremities with no edema bilaterally. Pulses palpable in the lower extremities, both dorsalis pedis and posterior tibial. [] Data : 03/11/20 03:34 03/11/20 03:34 Micro: Microbiology 03/09/20 00:30 Urine Culture - Preliminary Urine,Clean Catch A&P Assessment and plan (1) NSTEMI (non-ST elevated myocardial infarction): Status: Acute (2) Hypertension: Status: Acute Patient had presented with non-ST elevation KS. She underwent cardiac catheterization. Heart cath showed totally occluded mid RCA artery with collaterals from left system. This likely was a subacute occlusion given no ST elevations on EKG and moderate elevation of troponins. She underwent successful percutaneous revascularization to RCA with drug-eluting stent x1. She has a moderate to severe mid LAD stenosis that was not treated. Continue aspirin and Plavix. Continue high intensity statin therapy. Her blood pressure is high today. I have initiated lisinopril 2.5 mg twice daily and uptitrated Coreg to 6.25 mg twice daily. Patient's labs are stable. As outpatient we will do stress test to assess ischemia in LAD territory as stenosis is moderate to severe. If stress test shows ischemia in the anterior wall, will need staged PCI to LAD. Patient can be discharged from cardiology standpoint. She can follow with her nurse practitioner Yohana Nielsen in 7 to 10 days and I will schedule appointment in 1 month. Attestations Medical Necessity Statement*: Care expected to cross 2 midnights. Patient post acute KS. Coding Level of Care Code Acute Radiological Engineer for Antonio Bacon Diagnoses NSTEMI (non-ST elevated myocardial infarction) I21.4 Hypertension I10
--- NOTE | 2020-03-11 10:06 | P.DS_ITS ---
Discharge Providers Date of Admission: 03/10/20 17:22 Date of Discharge: March 11, 2020 Attending Provider at Admission: Freddie Oliveira MD Attending Provider at Discharge: Freddie Oliveira MD Diagnoses at Discharge Discharge Diagnosis (1) NSTEMI (non-ST elevated myocardial infarction): Status: Resolved (2) Hypertension: Status: Chronic Reason for Visit Reason for Visit: cp Hospital Course Hospital Course: 74-year-old female with past medical history of hypertension, recurrent UTI, was admitted with chief complaint of retrosternal, chest pain. Post admission she was diagnosed with NSTEMI, based on EKG, troponin changes, characteristics chest pain, cardiology was on board, she was managed as per ACS protocol. 2D echo was done: Normal LVEF function 55-60, no RWMA, mild pulmonary HTN. Structurally normal aortic valve. Structurally normal mitral valve, normal tricuspid valve and normal pulmonary valve. Cardiac cath: Showed: Completely occluded mid RCA with collaterals from left side:She underwent successful percutaneous revascularization to RCA with drug-eluting stent x1. She has a moderate to severe mid LAD stenosis that was not treated. As per cardiology plan she will continue to follow cardiology as outpatient. The plan to do an outpatient stress to assess LAD territory ischemia. For now they want to continue medical management. She was also treated for UTI with antibiotics.Patient is being discharged in stable condition. Physical Exam Const: COMMON NORMALS: patient oriented x3 HENMT: COMMON NORMALS: normocephalic, atraumatic, hearing grossly normal bilaterally and external ears normal HEAD & SCALP: normocephalic and atraumatic EXTERNAL EAR: Yes external ears normal Eye: COMMON NORMALS: no scleral icterus GENERAL EYE: appearance normal, both eyes and all related structures Chest: COMMONS NORMALS: normal inspection of the chest and normal palpation of entire chest wall CHEST: Yes Symmetrical chest wall rise Resp: COMMON NORMALS: normal respiratory effort, No retractions, No use of accessory muscles and clear to auscultation bilaterally EFFORT & INSPECTION: Yes symmetric chest movement AUSCULTATION: clear to auscultation bilaterally Cardio: COMMON NORMALS: regular rate, regular rhythm, S1 normal heart sound present, S2 normal heart sound present, No gallops present (Cardio), No murmurs present (Cardio), No rub (Cardio) and Peripheral pulses 2+ throughout RATE: regular rate RHYTHM: regular rhythm HEART SOUNDS: S1 normal heart sound present and S2 normal heart sound present PERIPHERAL PULSES: Peripheral pul ses 2+ throughout GI: COMMON NORMALS: Normal to inspection, nondistended, normoactive bowel sounds present, Soft to palpation, non-tender, No hepatosplenomegaly present and no masses AUSCULTATION: Yes normoactive bowel sounds PALPATION: Yes Soft to palpation and Yes No hepatosplenomegaly present RECTAL EXAM: deferred Extremity: COMMON NORMALS: no clubbing, cyanosis or edema and no pedal edema Neuro: COMMON NORMALS: patient oriented x3 Discharge Data Data Completed and Pending: Completed Studies During Hospitalization Category Date Time Status CT angio chest PE protcl 36411 Urge nt Cat Scan 03/09/20 01:05 Completed XR chest 1V vinicio ble [id number] Stat Exams 03/09/20 00:17 Completed CV echo lmt wo/w contras [id number] Rout ine Ultrasound 03/09/20 13:51 Completed US/CV paperwork R outine Ultrasound 03/09/20 Completed Pending at discharge Category Date Time Status LEASING DIRECTOR request for service Routin e Exams 03/09/20 10:38 Taken Complete Blood Co unt w/Auto AM LABS Lab 03/12/20 04:00 Ordered Comprehensive Met abolic Panel AM LA BS Lab 03/12/20 04:00 Ordered Magnesium AM LABS Lab 03/12/20 04:00 Ordered Phosphorus AM LAB S Lab 03/12/20 04:00 Ordered Platelet Count Q2 D Lab 03/13/20 04:00 Ordered Labs from last 24 hours 03/11/20 03/11/20 03:34 03:34 WBC 5.5 RBC 3.69 L Hgb 10.5 L Hct 33.2 L MCV 90.0 MCH 28.5 MCHC 31.6 RDW 12.8 Plt Count 90 L MPV 14.1 H Neut % (Auto) 67.5 Lymph % (Auto) 21.1 [place] % (Auto) 9.9 Eos % (Auto) 0.7 Baso % (Auto) 0.6 Neut # (Auto) 3.68 Lymph # (Auto) 1.2 [place] # (Auto) 0.5 Eos # (Auto) 0.0 Baso # (Auto) 0.0 Nucleated RBC % (a uto) 0 Nucleated RBCs # 0.0 Sodium 138 Potassium 3.8 Chloride 107 Carbon Dioxide 25 Anion Gap 9.8 BUN 14 Creatinine 0.9 GFR Calculation Not Reportable Glucose 116 H Calculated Osmolal ity 287 Calcium 9.6 Phosphorus 1.7 L Magnesium 2.1 Total Bilirubin 0.4 AST 45 H ALT 19 Alkaline Phosphata se 87 Total Protein 5.3 L Albumin 2.9 L Globulin 2.4 Vitals: Last Vital Signs Temp 98.5 F 03/11/20 08:00 Pulse 69 03/11/20 08:00 Resp 18 03/11/20 08:00 BP 178/96 03/11/20 08:00 Pulse Ox 96 03/11/20 08:00 Discharge Plan Discharge Patient Disposition: Home Condition: Stable Prescriptions: New Adult Aspirin Regimen 81 mg tablet,delayed release (DR/EC) 81 mg PO DAILY Qty: 30 RF: 0 Plavix 75 mg tablet 75 mg PO DAILY Qty: 30 RF: 0 atorvastatin 80 mg tablet 80 mg PO DAILY Qty: 30 RF: 0 carvedilol 6.25 mg tablet 6.25 mg PO Q12H Qty: 60 RF: 0 lisinopril 5 mg tablet 5 mg PO BID Qty: 60 RF: 0 metoprolol succinate 100 mg capsule,sprinkle,ER 24hr 100 mg PO Q24H Qty: 30 RF: 0 Continued pantoprazole 40 mg Tablet,Delayed Release (Dr/Ec) 40 mg PO DAILY RF: 0 levofloxacin 500 mg tablet 500 mg PO DAILY Qty: 5 RF: 0 Discontinued metoprolol tartrate 100 mg Tablet 100 mg PO DAILY RF: 0 Discharge Orders: Discharge Order (Routine); Ordered 03/11/20 Ordered By: Freddie Oliveira Referrals: Jaun Rodriguez M.D [Physician] - 6 Weeks (You will have an appointment with Dr. Dao on April 21 at 3:30pm. This is a Cardiology follow up at [facility] if you have any questions or concerns please call the office. ) Yohana Nielsen FNP [Nurse Practitioner] - 7-10 days (You have a hospital follow up appointment with Yohana Nielsen on March 18 at 10:00am. If you have any questions or conerns please call the office. ) Discharge Diet: Cardiac and Low Salt Patient Instructions: Metoprolol (By mouth), Lisinopril (By mouth), Aspirin (By mouth), Atorvastatin (By mouth), Carvedilol (By mouth), Clopidogrel (By mouth), Hypertension, Myocardial Infarction (DC), Chest Pain (DC), Urinary Tract Infection in Women (DC), Chest Pain Stoplight, Post Angiogram Home Care Instructions, Post Heart Attack Stoplight Discharge Attestations Time Spent in Discharge Care*: greater than 30 min Specific Discharge Activities: Specific discharge activities: educating patient, educating and/or supporting family/caregiver, discussing with pcp/other providers, discussing with protective services case worker/social workers/dc planners, documenting/other paperwork and evaluating patient/reviewing data Status at Discharge: Cognitive status at discharge: cognitively intact , Behavioral status at discharge: cooperative , Functional status at discharge: independent ambulation Overall status at discharge: patient is back to banner Quality Metrics Clinical Quality Measures During this hospital stay, did patient experience: AMI Clinical Trial Participant: No Contraindication to aspirin (AMI): Aspirin given Contraindication to statin: Statin prescribed Contraindication to PCI: PCI performed Contraindication to Fibrinolytics: Alternative treatment initiated Coding Level of Care Code Acute Gaming Director for Antonio Bacon Diagnoses NSTEMI (non-ST elevated myocardial infarction) I21.4 Hypertension I10
--- NOTE | 2020-03-11 10:43 | PC.NURSE ---
pt to be d/c'd home. spoke with son anjel. will call him when pt is ready to bring to the front of the hospital.
[2020-03-11 12:00] VITALS: BP 159/93; PULSE 78; RESP 19; TEMP 37; O2SAT 96
[2020-03-11 12:43] VITALS: BP 159/93; PULSE 78; RESP 19; TEMP 37; O2SAT 96
== END 2020-03-11 12:15 | disposition home or self-care (01) | DRG 247 ==
LOC: ER 03-09 06:00 → ICU 03-09 11:17 → CSU 03-10 14:35
PROVIDERS: Emergency Medicine; Family Medicine; Internal Medicine; Nurse Practitioner Family; Admitting Provider Internal Medicine; Visit Provider Internal Medicine
PROC: 027034Z Dilation of Coronary Artery, One Artery with Drug-eluting Intraluminal Device, Percutaneous Approach (ICD-10-PCS; principal; 2020-03-09 10:30)
PROC: 027034Z Dilation of Coronary Artery, One Artery with Drug-eluting Intraluminal Device, Percutaneous Approach (ICD-10-PCS; 2020-03-09 10:30)
DX: I21.4 Non-ST elevation (NSTEMI) myocardial infarction (principal); N39.0 Urinary tract infection, site not specified; E87.1 Hypo-osmolality and hyponatremia; N17.9 Acute kidney failure, unspecified; I10 Essential (primary) hypertension; I27.20 Pulmonary hypertension, unspecified; K21.9 Gastro-esophageal reflux disease without esophagitis; I20.0 Unstable angina
CPT/HCPCS: 12345; 36415; 71045; 71275; 80053; 80061; 81001; 83735; 83880; 84100; 84443; 84484; 85025; 85049; 85347; 85378; 85610; 87086; 93005; 93454; 96375; 99284; C1725; C1769; C1874; C1887; C1894; C8924; C9600; G0378; J0360; J0696; J1644; J2250; J2270; J2405; J2765; J3010; J3246; J3490; J7030; Q9956; Q9967

== ENCOUNTER → 2020-03-18 11:29 | Outpatient (BNVA) | payer MEDICARE, OTHER, SELFPAY | PROVIDERS: Visit Provider Nurse Practitioner Family | DX: I25.10 Atherosclerotic heart disease of native coronary artery without angina pectoris (principal) | CPT/HCPCS: 80048 ==

== ENCOUNTER 2020-05-17 07:12 | Outpatient (CLI) | payer MEDICARE, OTHER, SELFPAY ==
--- NOTE | 2020-05-17 07:22 | ECG_ITS ---
[facility] Test Date: 2020-05-17 Pat Name: Leonor Morataya Department: Room: Gender: Female Oven Technician: : 1945 Requested By: Jaun Rodriguez Order Number: [id number] Anette MD: Jaun Rodriguez M.D. Interpretive Statements NAME OF STUDY: LEXISCAN SESTAMIBI STRESS TEST INDICATION: [CAD] Procedure: At the baseline, blood pressure was 201/99 mmHg, with a heart rate of 67 bpm. The electrocardiogram showed normal sinus rhythm with normal axis and normal ST and T waves. The Lexiscan was infused over a period of 20 seconds. A total of 0.4 mg of Lexiscan was infused. The stress phase was continued for a total of 5 minutes. Heart rate at the end of stress phase was 103 bpm. Blood pressure was 191/98 mmHg. The EKG at peak infusion revealed normal sinus rhythm with no significant ST-T wave changes. Sestamibi was injected 20 seconds after the Lexiscan infusion. Blood pressure at the end of recovery phase was 192/100mmHg, with a heart rate of 98 bpm. Conclusion: 1. Normal EKG response to Lexiscan infusion. 2. No Lexiscan induced chest pain or cardiac arrhythmia. 3. Normal blood pressure and heart rate response. 4. Sestamibi/sestamibi perfusion scan pending; see separate report. Electronically Signed On 05-23-2020 10:55:13 BEHAVIORAL ASSISTANT by Jaun Rodriguez M.D. [id number]
--- NOTE | 2020-05-17 07:22 | NMCV_ITS ---
NM kobi perf SPECT r/s* [id number] Leonor Morataya Age: 75 Gender: F : 1945 Exam Date: 05/17/2020 08:32 Ordering Phys: Jaun Rodriguez M.D ([email or web address]) Technologist: PALMIRA Masterson Exam Location: [facility] Indications: CAD ATHEROSCLEROSIS OF CABG STRESS TEST Please see separate stress test report in [facility] for full findings IMAGE PROTOCOL Rest/Stress 1 Lexiscan Day Radiopharmaceutical Dose (mCi) Administration Site Administered by Rest: Tc-99m 10.5 IV PALMIRA Masterson Sestamibi Stress:Tc-99m 32.7 IV PALMIRA Masterson Sestamibi Rest: 17-May-2020 60 Discovery 630 Stress: 17-May-2020 30 Discovery 630 0.4mg Lexiscan. Images obtained in supine and prone position. SPECT RESULTS Technical Quality: Excellent Raw Data Analysis: Normal Image Corrections: No attenuation or motion correction applied Summed Stress Score: 0 Summed Rest Score: 0 Summed Difference Score: 0 PERFUSION FINDINGS SPECT images demonstrate homogeneous tracer distribution throughout the myocardium. FUNCTIONAL RESULTS (calculated via Gated SPECT) Stress Image LV EF (%): 83 Stress EDV (mL):64 TID: 0.92 Stress ESV (mL):11 Rest Image LV EF (%): 83 FUNCTIONAL FINDINGS: There is normal left ventricular systolic function. IMPRESSIONS Myocardial perfusion imaging is normal and low probability for obstructive coronary disease. EKG segment will be documented separately. Melani Duenas MD (Electronically Signed) Final Date: 17 May 2020 18:44 S
[2020-05-17 07:38] VITALS: BMI 24.3
[2020-05-17] MEDS: regadenoson 0.4 Mg/5 ml Syringe IVP (09:10)
[2020-05-17 09:34] VITALS: BP 192/100; PULSE 98
== END 2020-05-17 07:13 | disposition home or self-care (01) ==
PROVIDERS: PCP Nurse Practitioner; Visit Provider Internal Medicine
DX: I25.810 Atherosclerosis of coronary artery bypass graft(s) without angina pectoris (principal)
CPT/HCPCS: 78452; 93017; A9500; J2785

== ENCOUNTER → 2020-10-23 13:14 | Outpatient (BNVA) | payer MEDICARE, OTHER, SELFPAY | PROVIDERS: PCP Nurse Practitioner; Visit Provider Nurse Practitioner | DX: R39.9 Unspecified symptoms and signs involving the genitourinary system (principal); N39.0 Urinary tract infection, site not specified | CPT/HCPCS: 81000 ==

== ENCOUNTER → 2021-01-09 13:57 | Outpatient (BNVA) | payer MEDICARE, OTHER, SELFPAY | PROVIDERS: PCP Nurse Practitioner; Referring Provider Nurse Practitioner; Visit Provider Nurse Practitioner Family | DX: N39.0 Urinary tract infection, site not specified (principal) | CPT/HCPCS: 81003 ==

== ENCOUNTER → 2021-10-24 13:52 | Outpatient (BNVA) | payer MEDICARE, SELFPAY | PROVIDERS: PCP Nurse Practitioner; Visit Provider Internal Medicine | DX: I25.119 Atherosclerotic heart disease of native coronary artery with unspecified angina pectoris (principal); I25.10 Atherosclerotic heart disease of native coronary artery without angina pectoris; I10 Essential (primary) hypertension | CPT/HCPCS: 99214 ==

== ENCOUNTER 2021-10-27 11:34 | Outpatient (CLI) | payer MEDICARE, SELFPAY ==
[2021-10-27 12:00] LABS: Basophils % 0.6 %; Eosinophils # 0.1 10^3/uL (0.0-0.8); Eosinophils % 1.2 %; Hemoglobin 13.1 g/dL (11.5-15.3); Lymphocytes # 1.1 10^3/uL (0.8-4.8); Lymphocytes % 20.8 %; Mean Corpuscular HGB Conc 31.2 g/dL (30.0-36.0); Mean Corpuscular Hemoglobin 29.5 pg (28.0-34.0); Mean Corpuscular Volume 94.6 fl (81-99); Mean Platelet Volume 12.6 fL (7.4-10.4); Monocytes # 0.4 10^3/uL (0.2-0.9); Monocytes % 6.9 %; Neutrophils # 3.54 10^3/uL (1.8-7.7); Neutrophils % 70.3 %; Nucleated Red Blood Cells % 0 %; Platelet Count 153 10^3/cmm (130-400); Red Blood Count 4.44 10^6/uL (4.1-5.3); Red Cell Distribution Width 12.2 % (12.1-15.1)
[2021-10-27 12:18] LABS: Alanine Aminotransferase 17 U/L (0-33); Albumin Level 4.6 g/dL (3.5-5.2); Alkaline Phosphatase 102 IU/L (35-105); Anion Gap 11.3 (5-19); Aspartate Amino Transferase 21 U/L (0-32); Blood Urea Nitrogen 19 mg/dL (8-23); Calcium 11.1 mg/dL (8.5-10.5); Carbon Dioxide 28 mmol/L (22-29); Chloride 105 mmol/L (98-107); Chol HDL Ratio 2.08 mg/dL (0.0-4.40); Cholesterol 156 mg/dL (0-200); Globulin 3.1 g/dL (1.3-4.6); Glucose 106 mg/dL (65-115); HDL Cholesterol 75 mg/dL (60-100); LDL Cholesterol Calculated 67 mg/dL (50-129); LDL HDL Ratio 0.89 RATIO (0.00-3.22); Osmolality Calculated 293 mOsm/kg (285-295); Potassium 4.3 mmol/L (3.5-5.1); Sodium 140 mmol/L (136-145); Total Bilirubin 0.5 mg/dL (0.15-1.2); Total Protein 7.7 g/dL (6.6-8.7); Triglycerides 72 mg/dL (0-150)
== END 2021-10-27 11:35 | disposition home or self-care (01) ==
LOC: LAB 11:37
PROVIDERS: PCP Nurse Practitioner; Visit Provider Internal Medicine
DX: I10 Essential (primary) hypertension (principal); I25.119 Atherosclerotic heart disease of native coronary artery with unspecified angina pectoris
CPT/HCPCS: 80053; 80061; 85025

== ENCOUNTER → 2022-05-07 13:33 | Outpatient (BNVA) | payer MEDICARE, OTHER, SELFPAY | PROVIDERS: PCP Nurse Practitioner Family; Visit Provider Internal Medicine | DX: I25.119 Atherosclerotic heart disease of native coronary artery with unspecified angina pectoris (principal); I10 Essential (primary) hypertension | CPT/HCPCS: 99214 ==

== ENCOUNTER → 2022-11-06 14:21 | Outpatient (BNVA) | payer MEDICARE, OTHER, SELFPAY | PROVIDERS: PCP Nurse Practitioner Family; Visit Provider Internal Medicine | DX: I25.119 Atherosclerotic heart disease of native coronary artery with unspecified angina pectoris (principal); I10 Essential (primary) hypertension | CPT/HCPCS: 99214 ==

== ENCOUNTER → 2023-05-14 14:15 | Outpatient (BNVA) | payer MEDICARE, OTHER, SELFPAY | PROVIDERS: PCP Nurse Practitioner Family; Visit Provider Internal Medicine | DX: I25.119 Atherosclerotic heart disease of native coronary artery with unspecified angina pectoris (principal); I10 Essential (primary) hypertension | CPT/HCPCS: 80048; 85025; 99214 ==

== ENCOUNTER 2023-05-24 09:33 | Outpatient (CLI) | payer MEDICARE, OTHER, SELFPAY ==
[2023-05-24 09:52] VITALS: BMI 20.9
--- NOTE | 2023-05-24 09:52 | ECG_ITS ---
[facility] Test Date: 2023-05-24 Pat Name: Leonor Morataya Department: Room: Gender: Female Gun Fitter: Mendy Pan : 1945 Requested By: Jaun Rodriguez Order Number: [id number] Anette MD: Jaun Rodriguez M.D. Interpretive Statements NAME OF STUDY: LEXISCAN SESTAMIBI STRESS TEST INDICATION: [Chest Pain, ] Procedure: At the baseline, the blood pressure was 142/82 mmHg with a heart rate of 78 bpm. The electrocardiogram showed normal sinus rhythm, normal axis with normal ST and T's. The Lexiscan was infused over a period of 20 seconds. A total of 0.4 mg of Lexiscan was infused. The stress phase was continued for a total of 5 minutes. Heart rate was at the end of stress phase was 109 bpm and a blood pressure of 128/72 mmHg. The EKG at the peak infusion revealed sinus tachycardia with no significant ST-T wave changes. Sestamibi was injected 20 seconds after the Lexiscan infusion. Blood pressure at the end of recovery phase was 129/70 mmHg with a heart rate of 98 bpm. Conclusion: 1. Normal EKG response to Lexiscan infusion 2. No Lexiscan induced chest pain or cardiac arrhythmia. 3. Normal blood pressure and heart rate response. 4. Sestamibi/sestamibi perfusion scan pending; see separate report. Electronically Signed On 06-18-2023 15:54:51 RESTROOMS OR LOUNGES MAID by Jaun Rodriguez M.D. [id number]
--- NOTE | 2023-05-24 09:53 | NMCV_ITS ---
NM kobi perf SPECT r/s* [id number] Leonor Morataya Age: 78 Gender: F : 1945 Exam Date: 05/24/2023 10:31 Ordering Phys: Jaun Rodriguez M.D ([email or web address]) Technologist: PALMIRA Masterson Exam Location: [facility] Indications: CHEST PAIN STRESS TEST Please see separate stress test report in [facility] for full findings IMAGE PROTOCOL Rest/Stress 1 Lexiscan Day Radiopharmaceutical Dose (mCi) Administration Site Administered by Rest: Tc-99m 10.8 IV PALMIRA Castorena Sestamibi Stress:Tc-99m 32.6 IV PALMIRA Castorena Sestamibi Rest: 24-May-2023 60 Discovery 630 Stress: 24-May-2023 30 Discovery 630 0.4mg Lexiscan. Images obtained in supine and prone position. SPECT RESULTS Technical Quality: Excellent Raw Data Analysis: Normal Image Corrections: No attenuation or motion correction applied Summed Stress Score: 0 Summed Rest Score: 0 Summed Difference Score: 0 PERFUSION FINDINGS SPECT images demonstrate homogeneous tracer distribution throughout the myocardium. FUNCTIONAL RESULTS (calculated via Gated SPECT) Stress Image LV EF (%): 93 Stress EDV (mL):74 TID: 1 Stress ESV (mL):5 FUNCTIONAL FINDINGS: There is normal left ventricular systolic function. IMPRESSIONS 1. Normal myocardial perfusion imaging with no evidence of ischemia 2. LV systolic function is normal Jaun Rodriguez MD (Electronically Signed) Final Date: 24 May 2023 13:20 S
[2023-05-24] MEDS: regadenoson 0.4 Mg/5 ml Syringe IVP (11:06)
[2023-05-24 11:20] VITALS: BP 129/70; PULSE 99
== END 2023-05-24 09:34 | disposition home or self-care (01) ==
LOC: CDL 09:34
PROVIDERS: PCP Nurse Practitioner Family; Visit Provider Internal Medicine
DX: R07.9 Chest pain, unspecified (principal); R06.02 Shortness of breath
CPT/HCPCS: 36415; 78452; 93017; 96374; A9500; J2785

== ENCOUNTER 2023-07-31 13:11 | Outpatient (CLI) | payer MEDICARE, OTHER, SELFPAY ==
--- NOTE | 2023-07-31 13:19 | XR_ITS ---
WS: [id number] Exam: XR thoracic spine 2V [id number] Date/Time of Exam: 07/31/2023 1:44 PM Reason For Exam: PAIN IN THORACIC SPINE There is a compression fracture of the upper plate of T7 with about 50% loss in vertebral height and no posterior displacement. Fracture age is difficult to determine but probably old. No other fracture s. Exaggerated thoracic kyphosis. Osteopenia. Slight levoscoliosis. Normal paraspinal soft tissues. IMPRESSION: 1. Compression fracture of the upper plate of T7 with about 50% loss in vertebral height and no poste rior displacement. Fracture age difficult to determine but probably old. 2. Increased kyphosis. Osteopenia and minimal degenerative change.
== END 2023-07-31 13:12 | disposition home or self-care (01) ==
LOC: RAD 13:14
PROVIDERS: PCP Nurse Practitioner Family; Visit Provider Nurse Practitioner Family
DX: S22.068A Other fracture of T7-T8 thoracic vertebra, initial encounter for closed fracture (principal); M40.209 Unspecified kyphosis, site unspecified; M85.88 Other specified disorders of bone density and structure, other site; M47.814 Spondylosis without myelopathy or radiculopathy, thoracic region; M40.204 Unspecified kyphosis, thoracic region
CPT/HCPCS: 72070

== ENCOUNTER 2023-10-10 12:33 | Outpatient (CLI) | payer MEDICARE, SELFPAY ==
--- NOTE | 2023-10-10 12:38 | XR_ITS ---
WS: [id number] DEXA (DUAL ENERGY X-RAY ABSORPTIOMETRY) Bone mineral density was performed using a Walk-in machine. HISTORY: Compression fracture of T7 COMPARISON: 07/19/2015 Lumbar spine BMD (L1-L4): 0.706 g/cm2 T score: -4.0 Z score: -1.9 Total hip BMD: Left: 0.601 g/cm2. T score: -3.2 Z score: -1.1 Right: 0.489 g/cm2. T score: -4.1 Z score: -2.0 10 year probability of a major osteoporotic fracture is 45.8%. Compared to the prior study from 07/19/2015. Lumbar spine bone mineral density has decreased by 9.7%. Bilateral hips bone mineral density has decreased by 14.3%. XR/XR DEXA axial skeleton* [id number] IMPRESSION: OSTEOPENIA based upon the WHO classification for females. Significant decrease in bone mineral density within both the lumbar spine and h ips since the prior exam.
--- NOTE | 2023-10-10 12:51 | US_ITS ---
WS: [id number] THYROID ULTRASOUND HISTORY: HYPERPARATHYROIDISM COMPARISON: None available. Right lobe: 1.1 cm x 1.6 cm x 4.1 cm (w x ap x l). Volume: 3.4 cm3. Normal sized gland. Hypoechoic nodule in the anterior mid gland measures 0.9 x 0.6 x 1.0 cm. No incre ased vascularity. No echogenic foci. Left lobe: 1.4 cm x 1.4 cm x 3.5 cm (w x ap x l). Volume: 3.3 cm3. Normal size and echotexture. No significant or dominant nodules are present. Isthmus: 0.2 cm. US/US thyroid 73400 IMPRESSION: 1. TI-RADS 4; nodule mid RIGHT thyroid. Consistent with criteria suggesting fo llow with yearly ultrasound evaluations. 2. Negative LEFT thyroid.
== END 2023-10-10 12:34 | disposition home or self-care (01) ==
PROVIDERS: PCP Nurse Practitioner Family; Visit Provider Nurse Practitioner Family
DX: Z13.820 Encounter for screening for osteoporosis (principal); Z78.0 Asymptomatic menopausal state; M85.88 Other specified disorders of bone density and structure, other site
CPT/HCPCS: 76536; 77080

== ENCOUNTER → 2023-10-17 10:27 | Outpatient (BNVA) | payer MEDICARE, SELFPAY | PROVIDERS: PCP Nurse Practitioner Family; Referring Provider Nurse Practitioner Family; Visit Provider Internal Medicine | DX: M81.0 Age-related osteoporosis without current pathological fracture (principal); E21.3 Hyperparathyroidism, unspecified; I10 Essential (primary) hypertension; M89.9 Disorder of bone, unspecified; E04.1 Nontoxic single thyroid nodule; Z79.02 Long term (current) use of antithrombotics/antiplatelets | CPT/HCPCS: 36415; 80053; 82306; 82310; 83970; 84439; 84443; 99204 ==

== ENCOUNTER 2023-10-24 08:52 | Outpatient (CLI) | payer MEDICARE, OTHER, SELFPAY ==
--- NOTE | 2023-10-24 09:12 | NM_ITS ---
WS: [id number] NUCLEAR MEDICINE PARATHYROID SCAN HISTORY: OSTEOPOROSIS primary hyperparathyroidism. COMPARISON: Thyroid ultrasound 10/10/2023 Patient is injected with 17.6 mCi technetium 99m Sestamibi. Static imaging of the anterior neck and u pper thorax submitted at injection time and one hour postinjection. Sternal notch marker and chin mar kers are placed. Normal thyroid uptake on early imaging. There is also an area of marked increased uptake in the upper LEFT neck at the level of the mandibular angle that persists on both early and delayed imaging. The activity within the thyroid becomes minimal on the delayed imaging. NM/NM parathyroid [id number] IMPRESSION: Focal area of intense uptake persists on early and delayed imaging along the LE FT upper cervical chain near the angle of the mandible. Recommend directed ultr asound evaluation to this region to evaluate for parathyroid adenoma.
== END 2023-10-24 08:53 | disposition home or self-care (01) ==
PROVIDERS: PCP Nurse Practitioner Family; Visit Provider Nurse Practitioner Family
DX: M81.0 Age-related osteoporosis without current pathological fracture (principal); E83.52 Hypercalcemia; R79.89 Other specified abnormal findings of blood chemistry; R94.6 Abnormal results of thyroid function studies
CPT/HCPCS: 78070; A9500

== ENCOUNTER → 2023-10-31 11:15 | Outpatient (BNVA) | payer MEDICARE, OTHER, SELFPAY | PROVIDERS: PCP Nurse Practitioner Family; Visit Provider Internal Medicine | DX: M89.9 Disorder of bone, unspecified (principal); M81.0 Age-related osteoporosis without current pathological fracture; E21.3 Hyperparathyroidism, unspecified; E04.1 Nontoxic single thyroid nodule | CPT/HCPCS: 99214 ==

== ENCOUNTER → 2023-11-13 12:38 | Outpatient (BNVA) | payer MEDICARE, OTHER, SELFPAY | PROVIDERS: PCP Nurse Practitioner Family; Visit Provider Internal Medicine | DX: I25.119 Atherosclerotic heart disease of native coronary artery with unspecified angina pectoris (principal); I10 Essential (primary) hypertension | CPT/HCPCS: 99214 ==

== ENCOUNTER → 2024-01-03 09:00 | Outpatient (BNVA) | payer MEDICARE, OTHER, SELFPAY | PROVIDERS: PCP Nurse Practitioner Family; Visit Provider Internal Medicine | DX: E21.3 Hyperparathyroidism, unspecified (principal); E04.1 Nontoxic single thyroid nodule; M81.0 Age-related osteoporosis without current pathological fracture; I25.2 Old myocardial infarction | CPT/HCPCS: 82310; 83970; 99214 ==

== ENCOUNTER 2024-07-01 12:51 | Outpatient (CLI) | payer MEDICARE, OTHER, SELFPAY ==
[2024-07-01 14:16] LABS: Calcium 10.8 mg/dL (8.5-10.5)
[2024-07-01 14:24] LABS: Parathyroid Hormone 117.9 pg/mL (15-65)
== END 2024-07-01 12:52 | disposition home or self-care (01) ==
LOC: LAB 12:54
PROVIDERS: PCP Nurse Practitioner Family; Visit Provider Internal Medicine
DX: E04.1 Nontoxic single thyroid nodule (principal); E21.3 Hyperparathyroidism, unspecified
CPT/HCPCS: 36415; 82310; 83970

== ENCOUNTER → 2024-07-08 10:06 | Outpatient (BNVA) | payer MEDICARE, OTHER, SELFPAY | PROVIDERS: PCP Nurse Practitioner Family; Visit Provider Internal Medicine | DX: E04.1 Nontoxic single thyroid nodule (principal); E21.3 Hyperparathyroidism, unspecified; M89.9 Disorder of bone, unspecified; M81.0 Age-related osteoporosis without current pathological fracture | CPT/HCPCS: 99214 ==

== ENCOUNTER → 2024-08-12 12:33 | Outpatient (BNVA) | payer MEDICARE, OTHER, SELFPAY | PROVIDERS: PCP Nurse Practitioner Family; Visit Provider Internal Medicine | DX: I25.10 Atherosclerotic heart disease of native coronary artery without angina pectoris (principal); I10 Essential (primary) hypertension | CPT/HCPCS: 99214 ==

== ENCOUNTER 2024-09-28 14:01 | Outpatient (CLI) | payer MEDICARE, OTHER, SELFPAY ==
[2024-09-28 15:34] LABS: Alanine Aminotransferase 15 U/L (0-33); Alkaline Phosphatase 114 U/L (35-105); Anion Gap 14.6 (5-19); Aspartate Amino Transferase 19 U/L (0-32); Blood Urea Nitrogen 19 mg/dL (8-23); Calcium 9.9 mg/dL (8.5-10.5); Carbon Dioxide 23 mmol/L (22-29); Chloride 105 mmol/L (98-107); Globulin 2.7 g/dL (1.3-4.6); Glucose 113 mg/dL (65-115); Osmolality Calculated 289 mOsm/kg (285-295); Potassium 4.6 mmol/L (3.5-5.1); Sodium 138 mmol/L (136-145); Total Bilirubin 0.3 mg/dL (0.15-1.2); Total Protein 6.7 g/dL (6.6-8.7)
[2024-09-28 15:36] LABS: Calcium 9.9 mg/dL (8.5-10.5)
[2024-09-28 15:40] LABS: Parathyroid Hormone 87.7 pg/mL (15-65)
[2024-09-28 15:49] LABS: 25 Hydroxy Vitamin D 33 ng/mL (30-100)
== END 2024-09-28 14:02 | disposition home or self-care (01) ==
LOC: LAB 14:04
PROVIDERS: PCP Nurse Practitioner Family; Visit Provider Internal Medicine
DX: M89.9 Disorder of bone, unspecified (principal); E11.9 Type 2 diabetes mellitus without complications; E04.1 Nontoxic single thyroid nodule; E21.3 Hyperparathyroidism, unspecified
CPT/HCPCS: 36415; 80053; 82306; 82310; 83970

== ENCOUNTER → 2024-10-05 10:38 | Outpatient (BNVA) | payer MEDICARE, OTHER, SELFPAY | PROVIDERS: PCP Nurse Practitioner Family; Visit Provider Internal Medicine | DX: E04.1 Nontoxic single thyroid nodule (principal); E21.3 Hyperparathyroidism, unspecified | CPT/HCPCS: 99214 ==

== ENCOUNTER 2024-10-23 13:48 | Outpatient (CLI) | payer MEDICARE, OTHER, SELFPAY ==
--- NOTE | 2024-10-23 13:59 | XRR_ITS ---
PROCEDURE INFORMATION: Exam: XR Right Hip Exam date and time: 10/23/2024 2:23 PM Age: 79 years old Clinical indication: Hip pain; Right hip; Additional info: Pain in R hip, to include the pelvis TECHNIQUE: Imaging protocol: Radiologic exam of the right hip. Views: 1 view hip with pelvis when performed. COMPARISON: No relevant prior studies available. FINDINGS: Bones/joints: Partially imaged lower lumbar spondylosis. Moderate right hip and mild left hip DJD. Bilateral coxa profunda. Evidence of gluteal calcific tendinosis at the right greater trochanter. No acute fracture or dislocation. Atheromatous calcifications Soft tissues: Unremarkable. Organs: Heavily calcified 33 x 43 mm mass projects over the midline pelvis, possibly representing a calcified uterine fibroid; clinically correlate and follow-up as clinically indicated with nonemergent ultrasound XR/XR hip RT 2-3V wo/w pel* [id number] IMPRESSION: No acute findings. See above
== END 2024-10-23 13:49 | disposition home or self-care (01) ==
LOC: RAD 13:51
PROVIDERS: PCP Nurse Practitioner Family; Visit Provider Nurse Practitioner Family
DX: M25.551 Pain in right hip (principal); M47.816 Spondylosis without myelopathy or radiculopathy, lumbar region; M16.0 Bilateral primary osteoarthritis of hip; M16.6 Other bilateral secondary osteoarthritis of hip; R93.89 Abnormal findings on diagnostic imaging of other specified body structures; I70.90 Unspecified atherosclerosis
CPT/HCPCS: 73502

== ENCOUNTER → 2024-11-09 09:12 | Outpatient (BNVA) | payer MEDICARE, OTHER, SELFPAY | PROVIDERS: PCP Nurse Practitioner Family; Visit Provider Physician Assistant | DX: M16.11 Unilateral primary osteoarthritis, right hip (principal); M54.16 Radiculopathy, lumbar region | CPT/HCPCS: 99213 ==

== ENCOUNTER 2024-11-11 12:12 | Outpatient (CLI) | payer MEDICARE, OTHER, SELFPAY ==
--- NOTE | 2024-11-11 12:15 | US_ITS ---
WS: [id number] US pelvic complete* [id number] HISTORY: INTRA-ABDOMINAL PELVIC SWELLING, MASS, LUMP COMPARISON: None available. Uterus: Uterus is very poorly visualized and atrophy. There is a calcified mass measuring 10 x 18 mm in the central uterus probably corresponding to the calcified mass seen on recent radiograph. Endometrium: Not visualized. Neither ovary is identified. US/US pelvic complete* [id number] IMPRESSION: Poorly visualized uterus. There is a calcified mass measuring 10 x 18 mm corres ponding to the mass seen on recent radiograph. The entire calcified fibroid is not identified.
== END 2024-11-11 12:13 | disposition home or self-care (01) ==
LOC: RAD 12:13
PROVIDERS: PCP Nurse Practitioner Family; Visit Provider Nurse Practitioner Family
DX: R19.00 Intra-abdominal and pelvic swelling, mass and lump, unspecified site (principal)
CPT/HCPCS: 76856

== ENCOUNTER → 2024-12-25 12:34 | Outpatient (BNVA) | payer MEDICARE, OTHER, SELFPAY | PROVIDERS: PCP Nurse Practitioner Family; Visit Provider Student in an Organized Health Care Education/Training Program | DX: M16.11 Unilateral primary osteoarthritis, right hip (principal) | CPT/HCPCS: 20610; 77002; J3301; J9999 ==

== ENCOUNTER 2025-03-30 13:17 | Outpatient (CLI) | payer MEDICARE, OTHER, SELFPAY ==
[2025-03-30 14:13] LABS: Calcium 10.2 mg/dL (8.5-10.5)
[2025-03-30 14:14] LABS: Alanine Aminotransferase 17 U/L (0-33); Albumin Level 4.4 g/dL (3.5-5.2); Alkaline Phosphatase 89 U/L (35-105); Anion Gap 14.3 (5-19); Aspartate Amino Transferase 22 U/L (0-32); Blood Urea Nitrogen 20 mg/dL (8-23); Calcium 10.3 mg/dL (8.5-10.5); Carbon Dioxide 28 mmol/L (22-29); Chloride 100 mmol/L (98-107); Globulin 3.0 g/dL (1.3-4.6); Glucose 123 mg/dL (65-115); Osmolality Calculated 290 mOsm/kg (285-295); Potassium 4.3 mmol/L (3.5-5.1); Sodium 138 mmol/L (136-145); Total Protein 7.4 g/dL (6.6-8.7)
== END 2025-03-30 13:18 | disposition home or self-care (01) ==
LOC: LAB 13:19
PROVIDERS: PCP Nurse Practitioner Family; Visit Provider Internal Medicine
DX: E04.1 Nontoxic single thyroid nodule (principal); E21.3 Hyperparathyroidism, unspecified; M81.0 Age-related osteoporosis without current pathological fracture; M89.9 Disorder of bone, unspecified; M16.11 Unilateral primary osteoarthritis, right hip; M54.16 Radiculopathy, lumbar region
CPT/HCPCS: 36415; 80053; 82306; 82310; 83970; 99213

== ENCOUNTER → 2025-04-23 09:27 | Outpatient (BNVA) | payer MEDICARE, OTHER, SELFPAY | PROVIDERS: PCP Nurse Practitioner Family; Visit Provider Student in an Organized Health Care Education/Training Program | DX: M16.11 Unilateral primary osteoarthritis, right hip (principal) | CPT/HCPCS: 20610; 77002; J3301; J9999 ==

== ENCOUNTER → 2025-05-04 13:55 | Outpatient (BNVA) | payer MEDICARE, OTHER, SELFPAY | PROVIDERS: PCP Nurse Practitioner Family; Visit Provider Internal Medicine | DX: I25.10 Atherosclerotic heart disease of native coronary artery without angina pectoris (principal); I10 Essential (primary) hypertension; I25.2 Old myocardial infarction | CPT/HCPCS: 99213 ==